=== PATIENT | female | born 1975 | race Caucasian/White ===

== ENCOUNTER 2023-10-11 07:40 | Outpatient (CLI) | payer OTHER, SELFPAY | END 2023-10-11 07:41 | disposition home or self-care (01) | LOC: NFLDREF 10-12 11:47 | PROVIDERS: PCP Family Medicine; Referring Provider Family Medicine; Visit Provider Family Medicine | DX: Z00.00 Encounter for general adult medical examination without abnormal findings (principal); Z13.6 Encounter for screening for cardiovascular disorders; Z13.9 Encounter for screening, unspecified | CPT/HCPCS: 80053; 80061 ==

== ENCOUNTER 2023-12-10 13:41 | Emergency (ER) | payer OTHER, SELFPAY ==
[2023-12-10 13:47] VITALS: BP 94/64; PULSE 75; RESP 14; TEMP 36.8; O2SAT 100; BMI 18.2
[2023-12-10 14:02] LABS: Appearance Urine Slightly Cloudy (Clear); Bilirubin Urine Negative (Negative); Blood Urine Negative (Negative); Color Urine Yellow (Yellow); Glucose Urine Negative (Negative); Ketones Urine Negative (Negative); Leukocyte Esterase Urine Negative (Negative); Nitrite Urine Negative (Negative); Protein Urine Negative (Negative); Specific Gravity Urine >= 1.030 (1.000-1.030); Urobilinogen Urine 0.2 (0.2-1.0); pH Urine 5.5 (5.0-8.5)
--- NOTE | 2023-12-10 14:09 | CRLHL7_ITS ---
For Patients: As a result of the Century Cures Act, medical imaging exams and procedure reports are released immediately into your electronic medical record. You may view this report before your referring provider. If you have questions, please contact your health care provider. INDICATION: Left lower quadrant pain. TECHNIQUE: CT abdomen and pelvis acquired with 100 cc Omnipaque 350 IV contrast. COMPARISON: None. FINDINGS: Limited evaluation secondary to paucity of mesenteric fat. Lower chest: Scattered atelectasis. Liver: He scattered hepatic hypodensities. Normal in size and attenuation. No suspicious masses. Gallbladder and bile ducts: Unremarkable. No stones or inflammation. No biliary dilatation. Pancreas: Unremarkable. No mass or inflammation. Spleen: Unremarkable. Normal in size. No masses. Adrenal glands: Unremarkable. No nodules. Kidneys: Few right-sided renal sinus cysts. No suspicious masses, stones, or hydronephrosis. GI tract: Moderate colonic stool burden. Normal in caliber. No sign of mass or inflammation. Appendix not definitely seen, however no right lower quadrant inflammatory stranding. Vasculature: Abdominal aorta is normal in caliber. Mesenteric arteries are patent. Lymph nodes: No lymphadenopathy. Peritoneum/Abdominal Wall: Unremarkable. No sign of mass or infiltration. No free air or significant free fluid. Pelvis: Hysterectomy. Bones: Unremarkable for age. IMPRESSION: No acute intra-abdominal/pelvic abnormality. Moderate colonic stool burden. Please note that all CT scans at this facility use dose modulation, iterative reconstruction, and/or weight-based dosing when appropriate to reduce radiation dose to as low as reasonably achievable. Dictated by Zaheer Carroll MD @ 12/10/2023 3:14:09 PM (Electronically Signed)
--- NOTE | 2023-12-10 14:11 | ED_ITS ---
HPI - Abdominal Pain General Chief Complaint: Abdominal Pain Stated Complaint: L side abdominal pain Time Seen by Provider: 12/10/23 13:43 History of Present Illness HPI narrative: This 48-year-old female comes in reporting left lower quadrant abdominal pain that began this morning. She states that the pain is reproducible with standing up. When she is in a sitting position her pain is almost completely gone. She rates the pain at 8/10 in severity. She states that the pain does radiate down toward her left knee. She does have some chronic low back pain but describes no recent injury or strenuous activity. She has not had any fever, nausea, vomiting, diarrhea, or upper respiratory symptoms. Related Data Previous Rx's Medication Instructions Recorded albuterol sulfate 2.5 mg/3 mL 2.5 mg (3 mL) inhalation .prn PRN 10/24/22 (0.083 %) solution for nebulization bronchospasm #75 mL ipratropium 0.5 mg-albuterol 3 mg 3 ml inhalation Q4H PRN wheezing 04/23/23 (2.5 mg base)/3 mL nebulization #90 mL soln albuterol sulfate 90 mcg/actuation 2 puff inhalation Q4-6H PRN 10/13/23 aerosol inhaler bronchospasm #8.5 grams sumatriptan succinate 50 mg tablet 50 mg PO .As Needed PRN migraine 10/13/23 headache #14 tabs peg 3350-electrolytes 236 240 ml PO ONCE #4,000 mL 11/21/23 gram-22.74 gram-6.74 gram-5.86 gram solution (Golytely) benzonatate 100 mg capsule 100 mg PO BID-TID PRN cough #30 11/27/23 caps cyclobenzaprine 10 mg tablet 10 mg PO TID #15 tabs 12/10/23 ketorolac 10 mg tablet 10 mg PO Q8H 5 days #15 tabs 12/10/23 Allergies Allergy/AdvReac Type Severity Reaction Status Date / Time penicillin V Allergy Intermediate Hives Verified 12/10/23 13:46 amoxicillin Allergy Unknown Hives/angeo Verified 12/10/23 13:46 adema Review of Systems Status of ROS Reports: 10 or more systems reviewed and unremarkable except as noted in History and below Narrative Constitutional: No fevers, no weight gain or loss. Eyes: No discharge. No vision changes. HENT: No congestion, no sore throat, no ear pain. Cardiovascular: No chest pain, no palpitations. Respiratory: No shortness of breath, no wheezes, no cough. Gastrointestinal: No vomiting, no diarrhea. Abdominal pain as described above. Genitourinary: No dysuria, no hematuria. Musculoskeletal: Normal range of motion. Skin: No rashes, no pruritis. Neurological: No dizziness, weakness, sensory change, speech change. Endo/Heme/Allergies: No bruising or bleeding. No polydipsia. Pysch: no suicidality, no anxiety, no insomnia. All other systems reviewed and are negative. [facility] Medical History (Updated 12/10/23 @ 15:37 by Tigre Ogden MD) SAMIA III (cervical intraepithelial neoplasia III) (2016) ?D06.9 - Carcinoma in situ of cervix, unspecified (ICD-10) Endometriosis ?N80.9 - Endometriosis, unspecified (ICD-10) Migraine with aura ?G43.109 - Migraine with aura, not intractable, without status migrainosus (ICD-10) History of abnormal cervical Papanicolaou smear (2010) ?Z87.42 - Personal history of other diseases of the female genital tract (ICD-10) Hemangioma of liver (2013) ?D18.03 - Hemangioma of intra-abdominal structures (ICD-10) Crampy pain associated with menses ?N94.6 - Dysmenorrhea, unspecified (ICD-10) Surgical History (Updated 10/13/23 @ 12:20 by Prerna Barnett MD) Status post laparoscopic hysterectomy (2020) ?Z90.710 - Acquired absence of both cervix and uterus (ICD-10) History of repair of anterior cruciate ligament of left knee (1989) ?Z98.890 - Other specified postprocedural states (ICD-10) History of nasal septoplasty (09/01/17) ?Z98.890 - Other specified postprocedural states (ICD-10) Family History Paternal Grandmother Breast cancer, Onset Age: 92 Father Suicide Social History (Updated 10/13/23 @ 11:49 by Veronica Sanon ~ [facility]) Narrative: , licensed physical therapy assistant daycare, 2 kids, 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 Non-smoker Rarely consumes alcohol Exercise 5 to 6 times a week by walking on treadmill 90 minute What is your current living situation?: I presently have a place to live Problems where you live: no known problems In the past 12 months, utilities in danger of being shut off: no In past 12 months, lack of transportation kept you from medical appts, meetings, work, or getting things needed for daily living: no In the past 12 mos, have been you worried that your food would run out before you had money to buy more?: never true In the past 12 mos, the food you bought just didn't last and you didn't have money to buy more?: never true Smoking Status: Never smoker How often do you have a drink containing alcohol: monthly or less AUDIT-C Alcohol total score: 1 Non-prescribed substance use: denies use How often does anyone, including family, friends and others, physically hurt you : never How often does anyone, including family, friends and others, insult or talk down to you: never How often does anyone, including family, friends and others, threaten you with harm: never How often does anyone, including family, friends and others, scream or curse at you: never Little interest or pleasure in doing things: not at all Feeling down, depressed, or hopeless: not at all Exam Narrative: Exam Narrative: Constitutional: Well-developed, well-nourished, no acute distress. HEENT: Normocephalic, atraumatic. Neck: Normal range of motion. Nontender. Supple. Heart: Regular. No murmurs. Normal rate. Intact distal pulses. Lungs: Clear to auscultation. No chest discomfort. No wheezes, rhonchi, or rales. Abdomen: Normal bowel sounds. Tenderness when palpating in the left lower quadrant. No rebound tenderness. No pain when percussing over the left flank. Genitalia: Deferred. Back: No midline tenderness. Normal range of motion. Extremities: Normal range of motion. No injury. Skin: Intact. No rash. Warm. No erythema or pallor. Neurologic: No altered sensation. No weakness. Alert and oriented. Psychiatric: No suicidality. No anxiety or depression. No insomnia. Nursing notes and vitals signs are reviewed. Const: Vital Signs, click to edit/add: Vital Signs - 24 hr 12/10/23 13:47 12/10/23 14:20 Temperature 98.3 F Pulse Rate 79 Pulse Rate [Pulse Oximeter] 75 Respiratory Rate 14 14 Blood Pressure 125/82 Blood Pressure [Ri ght Upper Arm] 94/64 Pulse Oximetry 100 98 Oxygen Delivery Me thod Room Air Course Vital Signs Vital signs: Initial Vital Signs Temperature 98.3 F 12/10/23 13:47 Temperature Source Temporal Artery Scan 12/10/23 13:47 Pulse Rate 75 12/10/23 13:47 Pulse Rhythm Regular 12/10/23 13:47 Respiratory Rate 14 12/10/23 13:47 Blood Pressure 94/64 12/10/23 13:47 Blood Pressure Mean 74 12/10/23 13:47 Blood Pressure Position Sitting 12/10/23 13:47 Pulse Oximetry 100 12/10/23 13:47 Oxygen Delivery Method Room Air 12/10/23 13:47 Vital Signs Temperature 98.3 F 12/10/23 13:47 Pulse Rate 75 12/10/23 13:47 Respiratory Rate 14 12/10/23 13:47 Blood Pressure 94/64 12/10/23 13:47 Pulse Oximetry 100 12/10/23 13:47 Oxygen Delivery Method Room Air 12/10/23 13:47 Temperature 98.3 F 12/10/23 13:47 Pulse Rate 79 12/10/23 14:20 Respiratory Rate 14 12/10/23 14:20 Blood Pressure 125/82 12/10/23 14:20 Pulse Oximetry 98 12/10/23 14:20 Oxygen Delivery Method Room Air 12/10/23 13:47 MDM - Abdominal Pain MDM Narrative Medical decision making narrative: This patient comes in reporting left lower quadrant abdominal pain and low back pain. This pain radiates down into her left leg. She has worsening pain when standing up and her pain is relieved when sitting. She does not describe any fever or other symptoms. There is no recent injury event or strenuous activity. She does have some chronic low back pain. Her pain was a bit reproducible by pressing in her lower left quadrant of her abdomen. I did order a CT scan with IV contrast and this returns with no acute intra-abdominal process. Additionally her lab results are all reassuring. Her white cell count is elevated at around 16.3 but the patient states that she was recently on prednisone to treat some asthma symptoms. This would account for the increased white cell count. She does not have any fever or other signs of infection. Her urinalysis is normal. Most likely this patient's pain is musculoskeletal and perhaps pressure on a nerve somewhere. The patient did received prescription for Toradol and Flexeril. She is encouraged to remain active and increase activity as tolerated. She is encouraged also to follow-up with our spine clinic if needed. Lab Data Labs: Lab Results 12/10/23 12/10/23 Range/Units 13:51 14:20 WBC 16.34 H (4.50-11.00) K/uL RBC 5.06 (4.00-5.20) m/uL Hgb 15.1 (12.0-16.0) gm/dL Hct 47.2 (33.0-51.0) % MCV 93 (80-100) fL MCH 30 (26-34) pg MCHC 32 (32-36) gm/dL RDW Coeff of Blue 13.1 (11.5-15.5) % Plt Count 341 (140-440) K/uL Neut % (Auto) 83.2 H (42.0-72.0) % Lymph % (Auto) 11.7 L (20-44) % Wilkin % (Auto) 3.6 (0.0-11.0) % Eos % (Auto) 0.6 (0.0-7.0) % Baso % (Auto) 0.2 (0.0-3.0) % Neut # (Auto) 13.60 H (1.7-7.0) K/uL Lymph # (Auto) 1.90 (0.90-2.90) K/uL Wilkin # (Auto) 0.60 (0.00-0.90) K/UL Eos # (Auto) 0.10 (0.00-0.50) K/uL Baso # (Auto) 0.00 (0.00-0.30) K/uL Abs Immat Gran (auto) 0.10 (0.00-0.30) K/uL Imm/Tot Granulo (auto) 0.7 % Sodium 139 (135-149) mmol/L Potassium 5.1 (3.6-5.1) mmol/L Chloride 106 (96-114) mmol/L Carbon Dioxide 27 (20-32) mmol/L Anion Gap 6 L (7-15) mEq/L BUN 16 (5-24) mg/dL Creatinine 0.6 (0.5-1.5) mg/dL Estimated Creat Clear 100.67 Estimated GFR 112 ml/min Glucose 99 (60-115) mg/dL Calcium 9.1 (8.4-10.6) mg/dL Urine Color Yellow (Yellow) Urine Appearance Slightly Cloudy A (Clear) Urine pH 5.5 (5.0-8.5) Ur Specific [place] >= 1.030 (1.000-1.030) Urine Protein Negative (Negative) Urine Glucose (UA) Negative (Negative) Urine Ketones Negative (Negative) Urine Blood Negative (Negative) Urine Nitrite Negative (Negative) Urine Bilirubin Negative (Negative) Urine Urobilinogen 0.2 (0.2-1.0) Ur Leukocyte Esterase Negative (Negative) Urine RBC 0-2 (0-2) Urine WBC 0-2 (0-5) Urine WBC Clumps None (None) Ur Squamous Epith Cells Many A (None-Few) Urine Bacteria Moderate A (None) Imaging Data CT scan - abdomen: Radiologist's impression: No acute intra-abdominal/pelvic abnormality. Moderate colonic stool burden. Discharge Plan Discharge Clinical Impression: Acute left lumbar radiculopathy Patient Disposition: Home, Self-Care Condition: Stable Additional Instructions: Take medication as prescribed. Activity as tolerated. Follow up with Spine Clinic if not improving or worsening. Call [phone] for appointment. Return to emergency department if needed. Prescriptions: New cyclobenzaprine 10 mg tablet 10 mg PO TID Qty: 15 0RF ketorolac 10 mg tablet 10 mg PO Q8H 5 Days Qty: 15 0RF No Action albuterol sulfate 2.5 mg /3 mL (0.083 %) solution for nebulization 2.5 mg inhalation .prn PRN (Reason: bronchospasm) Qty: 75 3RF ipratropium-albuterol 0.5 mg-3 mg(2.5 mg base)/3 mL solution for nebulization 3 ml inhalation Q4H PRN (Reason: wheezing) Qty: 90 0RF sumatriptan succinate 50 mg tablet 50 mg PO .As Needed PRN (Reason: migraine headache) Qty: 14 1RF albuterol sulfate 90 mcg/actuation HFA aerosol inhaler 2 puff inhalation Q4-6H PRN (Reason: bronchospasm) Qty: 8.5 3RF Rx Instructions: Use as needed for wheezing shortness of breath and coughing benzonatate 100 mg capsule 100 mg PO BID-TID PRN (Reason: cough) Qty: 30 1RF peg 3350-electrolytes [Golytely] 236-22.74-6.74 -5.86 gram recon soln 240 ml PO ONCE Qty: 4000 0RF Rx Instructions: until fecal effluent is clear Follow Up/Referrals: Prerna Barnett MD [Primary Care Provider] - Stand Alone Forms: [employer] Info Instructions
[2023-12-10 14:18] LABS: RBC Urine 0-2 (0-2); WBC Urine 0-2 (0-5)
[2023-12-10 14:19] LABS: Bacteria Urine Moderate; Squamous Epithelial Cell Urine Many (None-Few)
[2023-12-10 14:20] VITALS: BP 125/82; PULSE 79; RESP 14; O2SAT 98
[2023-12-10 14:33] LABS: Basophils Percent Auto 0.2 % (0.0-3.0); Eosinophils Percent Auto 0.6 % (0.0-7.0); Hematocrit 47.2 % (33.0-51.0); Hemoglobin* 15.1 gm/dL (12.0-16.0); Immature Granulocytes Pct Auto 0.7 %; Lymphocytes Percent Auto 11.7 % (20-44); Mean Corpuscular HGB Conc 32 gm/dL (32-36); Mean Corpuscular Hemoglobin 30 pg (26-34); Mean Corpuscular Volume 93 fL (80-100); Monocytes Percent Auto 3.6 % (0.0-11.0); Neutrophils Percent Auto 83.2 % (42.0-72.0); Platelet Count* 341 K/uL (140-440); RDW Coefficient of Variation % 13.1 % (11.5-15.5); Red Blood Count 5.06 m/uL (4.00-5.20); White Blood Count* 16.34 K/uL (4.50-11.00)
[2023-12-10 14:44] LABS: Slide Review Reflex No
[2023-12-10 14:46] LABS: Chloride* 106 mmol/L (96-114)
[2023-12-10 14:47] LABS: Potassium* 5.1 mmol/L (3.6-5.1); Sodium* 139 mmol/L (135-149)
[2023-12-10 14:50] LABS: Anion Gap 6 mEq/L (7-15); Blood Urea Nitrogen* 16 mg/dL (5-24); Calcium* 9.1 mg/dL (8.4-10.6); Carbon Dioxide* 27 mmol/L (20-32); Creatinine* 0.6 mg/dL (0.5-1.5); Est. Creatinine Clearance* 100.67; Estimated Glomerular Filt Rate 112 ml/min; Glucose* 99 mg/dL (60-115)
--- OUTSIDE RECORDS SUMMARY | 2023-12-10 14:50 | XMS_ITS | Clinical Summary ---
Author Name Unknown Organization [facility] Address [place], [place] [address] Care Team Providers Care Customer Supply Coordinator Name Role Phone Pcp, No Primary Care Provider Unavailabl e Allergies Active Allergy Reactions Criticality Noted Date Comments Amoxicillin Anaphylaxis High 10/21/2016 Penicillins Hives 01/25/2007 Medications Medication Sig Dispensed Refills Start Date End Date Status multivitamin (MVI) tablet Take 1 tablet by mouth once daily. 0 10/30/2015 Active Inhalational Spacing Device (E-Z SPACER)Indications:As thma exacerbation For home use. 1 Device 0 10/24/2016 Active NebulizerIndications: Asthma exacerbation Nebulizer, dis neb kit x 4, reuse neb kit x 1, mask x 1, filters x 1. Frequency of use: daily; Med: albuterol LARA: 12 months 1 Device 0 10/26/2016 Active Nebulizer AccessoriesIndication s:Asthma exacerbation 1 Kit 0 10/26/2016 Active SUMAtriptan (IMITREX) 25 mg tabletIndications:Simon jerod with aura and without status migrainosus, not intractable Take 1 tablet by mouth 2 times daily if needed for Migraine. Max dose: 200mg per 24 hrs. 20 tablet 12 07/12/2018 Active albuterol (PROVENTIL) 0.083 % neb solutionIndications:E xacerbation of asthma, unspecified asthma severity, unspecified whether persistent Inhale 3 mL via a nebulizer every 4 hours if needed. 3 box 1 07/12/2018 Active albuterol HFA (PROAIR HFA) 90 mcg/actuation inhalerIndications:Mi ld intermittent asthma without complication Inhale 2 Puffs by mouth every 4 hours if needed (cough). Include spacer 3 Inhaler 4 07/12/2018 Active albuterol-ipratropium (DUONEB) (2.5-0.5 mg) in 3 mL NEBULIZATION solutionIndications:E xacerbation of asthma, unspecified asthma severity, unspecified whether persistent Inhale 3 mL via a nebulizer 4 times daily if needed. 1 box 1 07/12/2018 Active azithromycin (ZITHROMAX) 250 mg tabletIndications:Mod erate persistent asthma without complication,Cough,Fe berhane, unspecified fever cause Take 500 mg (2 tabs) by mouth on day 1, then 250 mg (1 tab) daily for days 2-5. 6 tablet 0 08/06/2018 Active ADVAIR DISKUS 250-50 mcg/dose diskus inhalerIndications:Mo derate persistent asthma without complication INHALE 1 PUFF BY MOUTH TWICE A DAY 60 g 0 09/05/2018 Active Active Problems Problem Noted Date Diagnosed Date Moderate persistent asthma without complication 08/06/2018 Liver hemangioma 05/14/2014 Overview: 3 small benign hemangiomas - evaluated by MRI on 05/13/14 ASCUS of cervix with negative high risk HPV 03/20 Overview: 03/2011 ASCUS/HPV negative. 07/22/2014 NIL 07/12/2018 NIL/HPV negative Plan: Pap/HPV due 06/2021 Unspecified asthma(493.90) 01/25/2007 Overview: with URI Migraine, unspecified, witho ut mention of intractable migraine without mention of status migrainosus Overview: usually asymptomatic Immunizations Name Administration Dates Next Due Hepatitis A (Adult) 05/26/2016 Influenza A (H1N1), Inactivated 10/16/2009 Influenza A (H1N1), Inactiva jessica (Age >=3 Years) 10/16/2009 Influenza, IIV3 (Age >=3 years) 10/02/2008,09/04,10/14/2003 Td (Age >=7 Years) 05/08/2006 Tdap 01/14/2013 Varicella Vaccine 01/14/2013,05/20/2008 Family History Medical History Relation Name Comments Psychiatric illness Father Suicide 2008 Cancer Maternal Aunt skin cancer in her 40's Hyperlipidemia Maternal Grandfather heart related COD Hyperlipidemia Maternal Grandmother heart related COD Good Health Mother Heart Disease Paternal Grandfather [place] in 1993 or , also skin melanoma in 70's Good Health Sister Psychiatric illness Son 1 ADHD Psychiatric illness Son 2 ADHD Relation Name Status Comments Father Maternal Aunt Maternal Grandfather Maternal Grandmother Mother Alive Paternal Grandfather Sister Alive Son 1 Son 2 Social History Tobacco Use Types Packs/Day Years Used Date Smoking Tobacco: Never Smokeless Tobacco: Never Tobacco Cessation:Counseling Given: Yes Alcohol Use Standard Drinks/Week Comments Yes 0 (1 standard drink = 0.6 oz pur e alcohol) occasional Sex and Gender Information Value Date Recorded Sex Assigned at Not on file Gender Identity Not on file Sexual Orientation Not on file Obstetrics History Para Term AB IAB SAB Ectopic Multiple Livin g Live Births 4 2 2 2 2 Date Outcome GA Total Labor Labor//3rd Weight Sex Delivery Anes PTL Torri A1 A5 Name Cl in Term Term 11/26 40w 0d Vag Carly ng Zack w 09/29 38w 0d Vag Carly ng Larry Last Filed Vital Signs Vital Sign Reading Time Taken Comments Blood Pressure 98/60 08/06/2018 10:43 AM CDT Pulse 88 08/06/2018 10:43 AM CDT Temperature 36.7 ??C (98 ??F) 08/06/2018 10:43 AM CDT Respiratory Rate 14 07/12/2018 3:30 PM CDT Oxygen Saturation 91% 08/06/2018 10:43 AM CDT Inhaled Oxygen Concentration - - Weight 58.5 kg (129 lb) 08/06/2018 10:43 AM CDT Height 170.2 cm (5' 7) 07/12/2018 3:30 PM CDT Body Mass Index 20.2 07/12/2018 3:30 PM CDT Plan of Treatment Health Maintenance Due Date Last Done Comments COVID-19 vaccine series (#1) 04/11/1978 HIV for age 15-65 1992 Hepatitis C screening for age 18-79 1995 Depression screening for age 12+ 08/24/2018 08/24/2017, 03/10/2016 BMI (ht and wt on same day) for age 18+ 07/12/2019 07/12/2018, 01/10/2018, 11/23/2017, Additional history exists Pap test for age 21-65 07/12/2021 8, 07/12/2018, 07/22/2014, Additional history exists Colonoscopy through age 75 2022 Lipids for age 45-75 2022 10/30/2015, 01/19/2009, 01/19/2009 Mammogram for age 45-75 2022 Tetanus booster 01/14/2023 01/14/2013, 05/08/2006 Influenza for age 9-49 07/21/2023 9, 10/16/2009, 10/02/2008, Additional history exists Tdap Completed 01/14/2013 Pneumococcal series for age 6-64 Aged Out No longer eligible based on patient's age to complete this topic Care Teams Customer Supply Coordinator Relationship Specialty Start Date End Date Pcp, No . PCP - General 12/28/18
== END 2023-12-10 15:48 | disposition home or self-care (01) ==
PROVIDERS: Emergency Provider Emergency Medicine Emergency Medical Services; PCP Family Medicine
DX: M54.16 Radiculopathy, lumbar region (principal)
CPT/HCPCS: 36415; 74177; 80048; 81001; 85025; 87086; 96374; 99284; 99285; Q9967

== ENCOUNTER 2024-04-05 10:26 | Day surgery (SDC) | payer OTHER, SELFPAY ==
[2024-04-05] VITALS (11 sets, daily range): BP systolic 118–134; BP diastolic 70–99; PULSE 74–99; RESP 12–16; TEMP 36.5–37.2; O2SAT 96–98; BMI 18.0
--- OUTSIDE RECORDS SUMMARY | 2024-04-05 10:40 | XMS_ITS | Clinical Summary ---
Author Name Unknown Organization [employer] [facility] Address [place], [place] [address] Care Team Providers Care Loan Secretary Name Role Phone Pcp, No Primary Care Provider Unavailabl e Allergies Active Allergy Reactions Criticality Noted Date Comments Amoxicillin Anaphylaxis High 10/21/2016 Doxycycline Nausea And Vomiting 01/01/2024 Penicillins Hives 01/25/2007 Medications Medication Sig Dispensed Refills Start Date End Date Status multivitamin (MVI) tablet Take 1 tablet by mouth once daily. 0 10/30/2015 Active Inhalational Spacing Device (E-Z SPACER)Indications:As thma exacerbation For home use. 1 Device 10/24/2016 Active NebulizerIndications: Asthma exacerbation Nebulizer, dis neb kit x 4, reuse neb kit x 1, mask x 1, filters x 1. Frequency of use: daily; Med: albuterol LARA: 12 months 1 Device 10/26/2016 Active Nebulizer AccessoriesIndication s:Asthma exacerbation 1 Kit 10/26/2016 Active SUMAtriptan (IMITREX) 25 mg tabletIndications:Simon [...] Include spacer 3 Inhaler 4 07/12/2018 Active ADVAIR DISKUS 250-50 mcg/dose diskus inhalerIndications:Mo derate persistent asthma without complication INHALE 1 PUFF BY MOUTH TWICE A DAY 60 g 09/05/2018 Active albuterol-ipratropium (DUONEB) (2.5-0.5 mg) in 3 mL NEBULIZATION solutionIndications:E xacerbation of asthma, unspecified asthma severity, unspecified whether persistent Inhale 3 mL via a nebulizer 4 times daily if needed for Shortness Of Breath or Wheezing. 30 mL 01/01/2024 Active Active Problems Problem Noted Date Diagnosed [...] Relation Name Comments Psychiatric illness Father Suicide 2007 Cancer Maternal Aunt skin cancer in her 40's Hyperlipidemia Maternal Grandfather heart related COD Hyperlipidemia Maternal Grandmother heart related COD Good Health Mother Heart Disease Paternal Grandfather AR in 1993 or , also skin melanoma [...] 2 2 Date Outcome GA Total Labor Labor/2nd/3rd Weight Sex Delivery Anes PTL Torri A1 A5 Name Cl in Term Term 11/26 40w 0d Vag Carly ng Zack w 09/29 38w 0d Vag Carly ng Larry Last Filed Vital Signs Vital Sign Reading Time Taken Comments Blood Pressure 133/73 01/01/2024 1:45 PM SEMICONDUCTORS WAFER BREAKER Pulse 82 01/01/2024 1:45 PM SEMICONDUCTORS WAFER BREAKER Temperature 37.2 ??C (98.9 ??F) 01/01/2024 1:45 PM CS T Respiratory Rate 16 01/01/2024 1:45 PM SEMICONDUCTORS WAFER BREAKER Oxygen Saturation 95% 01/01/2024 1:45 PM SEMICONDUCTORS WAFER BREAKER Inhaled Oxygen Concentration - - Weight 54.4 kg (120 lb) 01/01/2024 1:45 PM SEMICONDUCTORS WAFER BREAKER Height 172.7 cm (5' 8) 01/01/2024 1:45 PM SEMICONDUCTORS WAFER BREAKER Body Mass Index 18.25 01/01/2024 1:45 PM SEMICONDUCTORS WAFER BREAKER Plan of Treatment Health Maintenance Due Date Last Done Comments HIV for age 15-65 1992 Hepatitis C screening for age 18-79 1995 Depression screening for age 12+ 08/24/2018 08/24/2017, 03/10/2016 BMI (ht and wt on same day) for age 18+ 07/12/2019 07/12/2018, 01/10/2018, 11/23/2017, Additional history exists Colonoscopy through age 75 2022 Lipids for age 45-75 2022 10/30/2015, 01/19/2009, 01/19/2009 Mammogram for age 45-75 2022 Tetanus booster 01/14/2023 01/14/2013, 05/08/2006 Pap test for age 21-65 01/27/2024 , 01/26/2021, 07/12/2018, Additional history exists Influenza for age 9-49 07/21/2024 9, 10/16/2009, 10/02/2008, Additional history exists Tdap Completed 01/14/2013 COVID-19 vaccine series Completed 10/13/2023, 12/19 Pneumococcal series for age 6-64 Aged Out No longer eligible based on patient's age to complete this topic Procedures Procedure Name Priority Date/Time Associated Diagnosis Comments PROFESSOR OF INDUSTRIAL TECHNOLOGY THIN PREP PAP SCREEN IMAGED Routine 01/26/2021 2:00 PM SEMICONDUCTORS WAFER BREAKER LIPID PANEL W REFLEX MEASURED LDL Routine 10/30/2015 12:18 PM SEMICONDUCTORS WAFER BREAKER Screening for lipoid disorders from Last 3 Months or Most Recently Relevant to Health Maintenance Results * PROFESSOR OF INDUSTRIAL TECHNOLOGY THIN PREP PAP SCREEN IMAGED (01/26/2021 2:00 PM SEMICONDUCTORS WAFER BREAKER) Case Report Gynecologic Cytology Report ? Case: [id number] ? Authorizing Provider: ??Prerna Barnett MD ??Collected: ? 01/26/2021 1400 ? Ordering Location: ? [facility] ?Received: ?01/28/2021 1509 ? First Screen: ?Carlos, Barry ? Specimen: ?PROFESSOR OF INDUSTRIAL TECHNOLOGY ThinPrep Vial Screening, Cervical/Vaginal ? 02/05/2021 2:41 PM CDT [facility] INTERPRETATION/ RESULT NEGATIVE FOR INTRAEPITHELIAL LESION OR MALIGNANCY (NIL) (none) 02/05/2021 2:41 PM CDT [facility] IMEN ADEQUACY Satisfactory for evaluation Endocervical component present 02/05/2021 2:41 PM CDT [facility] HPV REQUEST HPV if ASCUS 02/05/2021 2:41 PM CDT [facility] Date of LMP 02/05/2021 2:41 PM T [facility] Comment:Unknown Last Pap Date 02/05/2021 2:41 PM CDT [facility] Comment:Unknown Last Pap Result NIL 2:41 PM CDT [facility] Additional Information 02/05/2021 2:41 PM CDT [facility] Comment: Interpreted at [facility], Central Laboratory - [address] [facility] [address], [place] [address] Automated Review Successful 02/05/2021 2:41 PM T [facility] Comment:Specimen processed s uccessfully by automated top trimmer device, ThinPrep Imaging System, [employer] Note The pap test is a screening technique, not a diagnostic procedure. It is used primarily to screen for squamous cancers and precursor lesions. Published studies have shown that it is subject to both false negative and false positive results. The pap test should not be used as the sole means to diagnose or exclude pre-malignant and malignant lesions. 02/05/2021 2:41 PM CDT [facility] Other (Cervical/Vagina l) 01/26/2021 2:00 PM SEMICONDUCTORS WAFER BREAKER 01/28/2021 3:09 PM SEMICONDUCTORS WAFER BREAKER Prerna Barnett MD PATHOLOGY/CYTOLO GY [facility] [address] [place] [address], * LIPID PANEL W REFLEX MEASURED LDL (10/30/2015 12:18 PM SEMICONDUCTORS WAFER BREAKER) CHOLESTEROL,TOTAL 180 100 - 199 mg/dL 10/30/2015 1:09 PM SEMICONDUCTORS WAFER BREAKER [facility] TRIGLYCERIDES 42 <150 mg/dL 10/30/2015 1:09 PM SEMICONDUCTORS WAFER BREAKER [facility] HDL CHOLESTEROL 79 >40 mg/dL 10/30/2015 1:09 PM SEMICONDUCTORS WAFER BREAKER [facility] NON-HDL CHOLESTEROL 101 <145 mg/dl 10/30/2015 1:09 PM SEMICONDUCTORS WAFER BREAKER [facility] CHOL/HDL RATIO 2.28 <4.50 10/30/2015 1:09 PM SEMICONDUCTORS WAFER BREAKER [facility] LDL CHOLESTEROL 93 <=130 mg/dL 10/30/2015 1:09 PM SEMICONDUCTORS WAFER BREAKER [facility] PATIENT STATUS FASTING 10/30/2015 1:09 PM SEMICONDUCTORS WAFER BREAKER [facility] Blood specimen (specimen) BLOOD SPECIMEN / Unknown Venipuncture / Unknown 10/30/2015 12:18 PM SEMICONDUCTORS WAFER BREAKER 10/30/2015 12:18 PM [employer]IC[employer]UCTORS WAFER BREAKER Violet Perez MD CHEMISTRY [facility] [address] [place] [address], from Last 3 Months or Most Recently Relevant to Health Maintenance Care Teams Loan Secretary Relationship Specialty Start Date End Date Pcp, No . PCP - General 12/28/18
--- OUTSIDE RECORDS SUMMARY | 2024-04-05 10:40 | XMS_ITS | Referral Summary ---
Author Name Unknown Organization [employer] Address [address] [facility] [place] [address] Care Team Providers Care Napper Fixer Name Role Phone Marian, Margo Collins Primary Care Provider Encounters Date Type Department Care Team Description 01/25/2024 Travel 01/25/2024 6:14 PM WASTE DISPOSAL ATTENDANT - 01/25/2024 8:47 PM WASTE DISPOSAL ATTENDANT Emergency [facility] Emergency Dept [address] [place] [id number] Brooks Somers MD Exacerbation of asthma, unspecified asthma severity, unspecified whether persistent (Primary Dx); Moderate persistent asthma without complication; Acute cough Discharge Disposition: Home or Self Care from Last 3 Months Medications Medication Sig Dispensed Refills Start Date End Date Status predniSONE (DELTASONE) 20 MG tablet Take 40 mg by mouth daily Active azithromycin (ZITHROMAX) 500 MG tablet Take 500 mg by mouth daily Active Active Problems Problem Noted Date Diagnosed Date Migraine headache 01/25/2024 Overview: usually asymptomatic Moderate persistent asthma without complication 08/06/2018 Liver hemangioma 05/14/2014 Overview: 3 small benign hemangiomas - evaluated by MRI on 05/13/14 ASCUS of cervix with negative high risk HPV 03/20 Overview: 03/2011 ASCUS/HPV negative. 07/22/2014 NIL 07/12/2018 NIL/HPV negative Plan: Pap/HPV due 06/2021 Asthma 01/25/2007 Overview: with URI Social History Tobacco Use Types Packs/Day Years Used Date Smoking Tobacco: Never Assessed Adolescent Education Answer Date Record ed Getting School Help Needed Not on file 01/24 Sex and Gender Information Value Date Recorded Sex Assigned at Not on file Gender Identity Not on file Sexual Orientation Not on file Last Filed Vital Signs Vital Sign Reading Time Taken Comments Blood Pressure 116/76 01/25/2024 8:30 PM WASTE DISPOSAL ATTENDANT Pulse 75 01/25/2024 8:30 PM WASTE DISPOSAL ATTENDANT Temperature 36.9 ??C (98.4 ??F) 01/25/2024 6:11 PM CS T Respiratory Rate 26 01/25/2024 6:11 PM WASTE DISPOSAL ATTENDANT Oxygen Saturation 93% 01/25/2024 8:30 PM WASTE DISPOSAL ATTENDANT Inhaled Oxygen Concentration - - Weight 53.1 kg (117 lb) 01/25/2024 6:22 PM WASTE DISPOSAL ATTENDANT Height 172.7 cm (5' 8) 01/25/2024 6:22 PM WASTE DISPOSAL ATTENDANT Body Mass Index 17.79 01/25/2024 6:22 PM WASTE DISPOSAL ATTENDANT Plan of Treatment Not on file Procedures Procedure Name Priority Date/Time Associated Diagnosis Comments XR CHEST 2 VIEWS STAT 01/25/2024 6:59 PM WASTE DISPOSAL ATTENDANT EKG 12-LEAD, TRACING ONLY STAT 01/25/2024 6:33 PM WASTE DISPOSAL ATTENDANT CBC WITH PLATELETS & DIFFERENTIAL STAT 01/25/2024 6:29 PM WASTE DISPOSAL ATTENDANT EXTRA HEPARINIZED SYRINGE STAT 01/25/2024 6:29 PM WASTE DISPOSAL ATTENDANT EXTRA GREEN TOP (LITHIUM HEPARIN) TUBE STAT 01/25/2024 6:29 PM WASTE DISPOSAL ATTENDANT EXTRA RED TOP TUBE STAT 01/25/2024 6: 29 PM WASTE DISPOSAL ATTENDANT EXTRA BLUE TOP TUBE STAT 01/25/2024 6 :29 PM WASTE DISPOSAL ATTENDANT EXTRA BLOOD CULTURE BOTTLE STAT 01/25/2024 6:29 PM WASTE DISPOSAL ATTENDANT CBC WITH PLATELETS AND DIFFERENTIAL STAT 01/25/2024 6:29 PM WASTE DISPOSAL ATTENDANT EXTRA TUBE STAT 01/25/2024 6:29 PM WASTE DISPOSAL ATTENDANT BASIC METABOLIC PANEL STAT 01/25/2024 6:29 PM WASTE DISPOSAL ATTENDANT EKG 12-LEAD, TRACING ONLY STAT 01/25/2024 6:18 PM WASTE DISPOSAL ATTENDANT from Last 3 Months Results * XR Chest 2 Views (01/25/2024 6:59 PM WASTE DISPOSAL ATTENDANT) Anatomical Region Laterality Modality Chest Digital Radiogra phy 01/25/2024 6:59 PM WASTE DISPOSAL ATTENDANT Impressions 01/26/2024 11:20 AM WASTE DISPOSAL ATTENDANT IMPRESSION: Hyperexpanded lungs, suggesting underlying emphysema. No focal airspace opacity. Bilateral pleural thickening versus trace effusions. No pneumothorax. Cardiac silhouette and mediastinal contours are normal. Narrative 01/26/2024 11:20 AM WASTE DISPOSAL ATTENDANT EXAM: XR CHEST 2 VIEWS LOCATION: [facility] DATE: 01/25/2024 INDICATION: Shortness of breath COMPARISON: 01/01/2024 Procedure Note Saturnino Adams MD - 01/26/2024 EXAM: XR CHEST 2 VIEWS LOCATION: [facility] DATE: 01/25/2024 INDICATION: Shortness of breath COMPARISON: 01/01/2024 IMPRESSION: Hyperexpanded lungs, suggesting underlying emphysema. No focalairspace opacity. Bilateral pleural thickening versus trace effusions. Nopneumothorax. Cardiac silhouette and mediastinal contours are normal. Brooks Somers MD IMG DIAGNOSTIC IMAGI NG ORDERABLES * EKG 12 lead (01/25/2024 6:33 PM WASTE DISPOSAL ATTENDANT) Only the most recent of2 resultswithin the time period is included. Systolic Blood Pressure mmHg RADIOLOGY RESULTS Diastolic Blood Pressure mmHg RADIOLOGY RESULTS Ventricular Rate 70 BPM RAD IOLOGY RESULTS Atrial Rate 70 BPM RADIOLOG Y RESULTS VT Interval 152 ms RADIOLOG Y RESULTS QRS Duration 84 ms RADIOLO GY RESULTS QT 416 ms RADIOLOGY RESULTS QTc 449 ms RADIOLOGY RESULTS P Stevinson 81 degrees RADIOLOGY RESULTS R AXIS 76 degrees RADIOLOGY RESULTS T Stevinson 61 degrees RADIOLOGY RESULTS Interpretation ECG Sinus rhythm with sinus arrhythmia Normal ECG When compared with ECG of 25-JAN-2024 18:18, (unconfirmed) No significant change was found RADIOLOGY RESULTS 01/25/2024 6:33 PM WASTE DISPOSAL ATTENDANT 01/25/2024 7:35 PM WASTE DISPOSAL ATTENDANT Brooks Somers MD ECG ORDERABLES Performing Organization Address [facility]/ZIP Co de Phone Number RADIOLOGY RESULTS * Extra Heparinized Syringe (01/25/2024 6:29 PM WASTE DISPOSAL ATTENDANT) Hold Specimen [facility] 01/25/2024 7:47 PM WASTE DISPOSAL ATTENDANT [facility] Blood, venous BLOOD SPECIMEN / Unknown Venipuncture / Unknown 01/25/2024 6:29 PM WASTE DISPOSAL ATTENDANT 01/25/2024 6:38 PM WASTE DISPOSAL ATTENDANT Brooks Somers MD LAB - BLOOD ORDERABL ES Performing Organization Address [facility] Co de Phone Number [facility] [address] Lab (1st floor, no room number) [place] [phone], [facility] [phone] * Extra Blood Culture Bottle (01/25/2024 6:29 PM WASTE DISPOSAL ATTENDANT) Hold Specimen [facility] 01/25/2024 7:47 PM WASTE DISPOSAL ATTENDANT [facility] Blood STRUCTURE OF RIGHT UPPER LIMB / Unknown Venipuncture / Unknown 01/25/2024 6:29 PM WASTE DISPOSAL ATTENDANT 01/25/2024 6:39 PM WASTE DISPOSAL ATTENDANT Brooks Somers MD LAB - BLOOD ORDERABL ES Performing Organization Address City/[facility]/ZIP Co de Phone Number [facility] [address] Lab (1st floor, no room number) [place] [address], [facility] [phone] * Extra Green Top (Olin Heparin) Tube (01/25/2024 6:29 PM WASTE DISPOSAL ATTENDANT) Hold Specimen [facility] 01/25/2024 7:47 PM WASTE DISPOSAL ATTENDANT [facility] Blood BLOOD SPECIMEN / Unknown Venipuncture / Unknown 01/25/2024 6:29 PM WASTE DISPOSAL ATTENDANT 01/25/2024 6:38 PM WASTE DISPOSAL ATTENDANT Brooks Somers MD LAB - BLOOD ORDERABL ES [facility] Lab [address] Lab (1st floor, no room number) [place] [address], [facility] [phone] * Extra Red Top Tube (01/25/2024 6:29 PM WASTE DISPOSAL ATTENDANT) Hold Specimen [facility] 01/25/2024 7:47 PM WASTE DISPOSAL ATTENDANT [facility] Blood BLOOD SPECIMEN / Unknown Venipuncture / Unknown 01/25/2024 6:29 PM WASTE DISPOSAL ATTENDANT 01/25/2024 6:38 PM WASTE DISPOSAL ATTENDANT Brooks Somers MD LAB - BLOOD ORDERABL ES Performing Organization Address City/[facility]/ZIP Co de Phone Number [facility] [address] Lab (1st floor, no room number) [place] [address], [place] [phone] * Extra Blue Top Tube (01/25/2024 6:29 PM WASTE DISPOSAL ATTENDANT) Hold Specimen [facility] 01/25/2024 7:47 PM WASTE DISPOSAL ATTENDANT [facility] Blood BLOOD SPECIMEN / Unknown Venipuncture / Unknown 01/25/2024 6:29 PM WASTE DISPOSAL ATTENDANT 01/25/2024 6:38 PM WASTE DISPOSAL ATTENDANT Brooks Somers MD LAB - BLOOD ORDERABL ES [facility] [address] Lab (1st floor, no room number) [place] [address], [place] [phone] * (ABNORMAL) CBC with platelets and differential (01/25/2024 6:29 PM WASTE DISPOSAL ATTENDANT) [facility] WBC Count 10.8 4.0 - 11.0 10e3/uL 01/25/2024 6:43 PM WASTE DISPOSAL ATTENDANT [facility] RBC Count 4.92 3.80 - 5.20 10e6/uL 01/25/2024 6:43 PM WASTE DISPOSAL ATTENDANT [facility] Hemoglobin 14.8 11.7 - 15.7 g/dL 01/25/2024 6:43 PM WASTE DISPOSAL ATTENDANT [facility] Hematocrit 45.5 35.0 - 47.0 % 01/25/2024 6:43 PM WASTE DISPOSAL ATTENDANT [facility] MCV 93 78 - 100 fL 01/25/2024 6:43 PM WASTE DISPOSAL ATTENDANT [facility] MCH 30.1 26.5 - 33.0 pg 01/25/2024 6:43 PM WASTE DISPOSAL ATTENDANT [facility] MCHC 32.5 31.5 - 36.5 g/dL 01/25/2024 6:43 PM WASTE DISPOSAL ATTENDANT [facility] RDW 13.2 10.0 - 15.0 % 01/25/2024 6:43 PM WASTE DISPOSAL ATTENDANT [facility] Platelet Count 342 150 - 450 10e3/uL 01/25/2024 6:43 PM WASTE DISPOSAL ATTENDANT [facility] % Neutrophils 61 % 01/25/2024 6:43 PM WASTE DISPOSAL ATTENDANT [facility] % Lymphocytes 22 % 01/25/2024 6:43 PM WASTE DISPOSAL ATTENDANT [facility] % Monocytes 5 % 01/25/2024 6:43 PM WASTE DISPOSAL ATTENDANT [facility] % Eosinophils 11 % 01/25/2024 6:43 PM WASTE DISPOSAL ATTENDANT [facility] % Basophils 1 % 01/25/2024 6:43 PM WASTE DISPOSAL ATTENDANT [facility] % Immature Granulocytes 0 % 01/25/2024 6:43 PM WASTE DISPOSAL ATTENDANT [facility] NRBCs per 100 WBC 0 <1 /100 024 6:43 PM WASTE DISPOSAL ATTENDANT [facility] Absolute Neutrophils 6.5 1.6 - 8.3 10e3/uL 01/25/2024 6:43 PM WASTE DISPOSAL ATTENDANT [facility] Absolute Lymphocytes 2.4 0.8 - 5.3 10e3/uL 01/25/2024 6:43 PM WASTE DISPOSAL ATTENDANT [facility] Absolute Monocytes 0.6 0.0 - 1.3 10e3/uL 01/25/2024 6:43 PM WASTE DISPOSAL ATTENDANT [facility] Absolute Eosinophils 1.2(H) 0.0 - 0.7 10e3/uL 01/25/2024 6:43 PM WASTE DISPOSAL ATTENDANT LABORATORY Absolute Basophils 0.1 0.0 - 0.2 10e3/uL 01/25/2024 6:43 PM WASTE DISPOSAL ATTENDANT LABORATORY Absolute Immature Granulocytes 0.0 <=0.4 10e3/uL 01/25/2024 6:43 PM WASTE DISPOSAL ATTENDANT [facility] Absolute NRBCs 0.0 10e3/uL 01/25/2024 6:43 PM WASTE DISPOSAL ATTENDANT LABORATORY Blood BLOOD SPECIMEN / Unknown Venipuncture / Unknown 01/25/2024 6:29 PM WASTE DISPOSAL ATTENDANT 01/25/2024 6:38 PM WASTE DISPOSAL ATTENDANT Brooks Somers MD LAB - BLOOD ORDERABL ES LABORATORY [facility] Lab [address] [facility] Lab (1st floor, no room number) [place] [address], [facility] [phone] * Basic metabolic panel (01/25/2024 6:29 PM WASTE DISPOSAL ATTENDANT) Pathologist [facility] Sodium 139 135 - 145 mmol/L 01/25/2024 7:01 PM [facility] Comment:Reference intervals for this test were updated on 08/15/2023 to more accurately reflect our healthy population. There may be differences in the flagging of prior results with similar values performed with this method. Interpretation of those prior results can be made in the context of the updated reference intervals. Potassium 4.4 3.4 - 5.3 mmol/L 01/25/2024 7:01 PM [facility] Chloride 103 98 - 107 mmol/L 01/25/2024 7:01 PM [facility] Carbon Dioxide (CO2) 23 22 - 29 mmol/L 01/25/2024 7:01 PM [facility] Anion Gap 13 7 - 15 mmol/L 01/25/2024 7:01 PM [facility] Urea Nitrogen 15.8 6.0 - 20.0 mg/dL 01/25/2024 7:01 PM [facility] Creatinine 0.82 0.51 - 0.95 mg/dL 01/25/2024 7:01 PM [facility] GFR Estimate 89 >60 mL/min/1. 73m2 01/25/2024 7:01 PM WASTE DISPOSAL ATTENDANT [facility] Calcium 9.2 8.6 - 10.0 mg/dL 01/25/2024 7:01 PM WASTE DISPOSAL ATTENDANT [facility] Glucose 94 70 - 99 mg/dL 01/25/2024 7:01 PM WASTE DISPOSAL ATTENDANT [facility] Blood BLOOD SPECIMEN / Unknown Venipuncture / Unknown 01/25/2024 6:29 PM WASTE DISPOSAL ATTENDANT 01/25/2024 6:38 PM WASTE DISPOSAL ATTENDANT Brooks Somers MD LAB - BLOOD ORDERABL ES [facility] [address] Lab (1st floor, no room number) [place] [address], [facility] [phone] from Last 3 Months Care Teams Napper Fixer Relationship Specialty Start Date End Date [facility], [address] [address] PCP - General 01/25/24
--- OUTSIDE RECORDS SUMMARY | 2024-04-05 10:40 | XMS_ITS | Encounter Summary ---
Author Name Unknown Organization [facility] Address [address] [place] [address] Care Team Providers Care Educational Therapist Name Role Phone Marian, Margo Ellington Primary Care Provider Reason for Visit * Reason Comments Shortness of Breath Encounter Details Date Type Department Care Team (Late st Contact Info) Description 01/25/2024 6:14 PM MARKET RESEARCH WORKER - 01/25/2024 8:47 PM MARKET RESEARCH WORKER Emergency [facility] Emergency Dept [address] [place] [address] [phone] Brooks Somers MD [facility] [address] [facility] [address] [id number] Exacerbation of asthma, unspecified asthma severity, unspecified whether persistent (Primary Dx); Moderate persistent asthma without complication; Acute cough Discharge Disposition: Home or Self Care Social History Tobacco Use Types Packs/Day Years Used Date Smoking Tobacco: Never Assessed Adolescent Education Answer Date Record ed Getting School Help Needed Not on file 01/24 Sex and Gender Information Value Date Recorded Sex Assigned at Not on file Gender Identity Not on file Sexual Orientation Not on file documented as of this encounter Last Filed Vital Signs Vital Sign Reading Time Taken Comments Blood Pressure 116/76 01/25/2024 8:30 PM MARKET RESEARCH WORKER Pulse 75 01/25/2024 8:30 PM MARKET RESEARCH WORKER Temperature 36.9 ??C (98.4 ??F) 01/25/2024 6:11 PM CS T Respiratory Rate 26 01/25/2024 6:11 PM MARKET RESEARCH WORKER Oxygen Saturation 93% 01/25/2024 8:30 PM MARKET RESEARCH WORKER Inhaled Oxygen Concentration - - Weight 53.1 kg (117 lb) 01/25/2024 6:22 PM MARKET RESEARCH WORKER Height 172.7 cm (5' 8) 01/25/2024 6:22 PM MARKET RESEARCH WORKER Body Mass Index 17.79 01/25/2024 6:22 PM MARKET RESEARCH WORKER documented in this encounter Discharge Instructions * Discharge Instructions* Brooks Somers MD - 01/25/2024 8:19 PM MARKET RESEARCH WORKER Thank you for allowing us to evaluate you today. Follow up with primary career advisor in 1-2 weeks for reevaluation.. Use the steroid, inhalers, nebs and Z-Yosi as already prescribed Use the codeine cough syrup for severe nighttime cough Please read the guidance provided with your discharge instructions. Immediately return to the emergency department with any concerns. ET RESEARCH WORKER * Attachments The following attachments cannot be sent through Care Everywhere. * Asthma: General Info (Setswana) documented in this encounter Medications at Time of Discharge Medication Sig Dispensed Refills Start Date End Date azithromycin (ZITHROMAX) 500 MG tablet Take 500 mg by mouth daily predniSONE (DELTASONE) 20 MG tablet Take 40 mg by mouth daily guaiFENesin-codeine (ROBITUSSIN AC) 100-10 MG/5ML solution Take 5-10 mLs by mouth every 4 hours as needed for cough 118 mL 01/25/2024 01/30/2024 documented as of this encounter ED Notes * Catie Bunch RN - 01/25/2024 6:12 PM CST Presents to triage with c/o SOB that has been ongoing for a few weeks but has gotten much worse over the past day. Patient was seen today at and given neb treatments, steroids and abx. Last neb was at 1430 but did not relieve any symptoms. Audibile wheezing in triage. ET RESEARCH WORKER * Brooks Somers MD - 01/25/2024 5:59 PM CST History Chief Complaint: Shortness of Breath HPI: Ifeoma Garcia is a very pleasant 48 year old female with asthma presenting with shortness of breath. She has had ongoing issues with shortness of breath and cough over the last few weeks. Symptoms have gone up which was over the last day. She was evaluated in urgent care and was given an albuterol nebulizer, steroids and prescribed a course of prednisone and azithromycin. No fever or chills. She has chest pain but only when coughing. She has been struggling to sleep due to persistent cough. Independent Historian: None. Only the patient provided history. Review of External Notes: I personally reviewed notes from the patient's urgent care visit dated 01/01/2024 . This provided mewith information regarding patient's recent presentation that urgent care for sinus infection . I personally reviewed the patient's chart, including available medication list and available past medical history, past surgical history, family history, and social history. Physical Exam Patient Vitals for the past 24 hrs: BP Temp Temp src Pulse Resp SpO2 Height Weight 01/25/242029 116/76 -- -- 75 -- 93 % -- -- 01/25/24 1822 -- -- -- -- -- -- 1.727 m (5' 8) 53.1 kg (117 lb) 01/25/24 1811 (!) 138/102 98.4 ??F (36.9 ??C) Temporal 90 26 94 % -- -- Physical Exam Vitals and nursing note reviewed. Constitutional: Appearance: She is well-developed. She is ill-appearing. Cardiovascular: Rate and Rhythm: Normal rate and regular rhythm. Pulmonary: Effort: Tachypnea present. Breath sounds: Wheezing present. No decreased breath sounds, rhonchi or rales. Musculoskeletal: Right lower leg: No edema. Left lower leg: No edema. Skin: General: Skin is warm and dry. Neurological: Mental Status: She is alert. Emergency Department Course ECG: ECG results from 01/25/24 EKG 12-lead, tracing only Value Systolic Blood Pressure Diastolic Blood Pressure Ventricular Rate 73 Atrial Rate 73 OK Interval 156 QRS Duration 84 QT 410 QTc 451 P Iva 83 R AXIS 77 T Iva 65 Interpretation ECG Sinus rhythm Normal ECG No previous ECGs available EKG 12 lead Value Systolic Blood Pressure Diastolic Blood Pressure Ventricular Rate 70 Atrial Rate 70 OK Interval 152 QRS Duration 84 QT 416 QTc 449 P Iva 81 R AXIS 76 T Iva 61 Interpretation ECG Sinus rhythm with sinus arrhythmia Normal ECG When compared with ECG of 25-JAN-2024 18:18, (unconfirmed) No significant change was found My interpretation Imaging: Laboratory: XR Chest 2 Views (Results Pending) Report(s) per radiology. Labs Ordered and Resulted from Time of ED Arrival to Time of ED Departure CBC WITH PLATELETS AND DIFFERENTIAL - Abnormal Result Value WBC Count 10.8 RBC Count 4.92 Hemoglobin 14.8 Hematocrit 45.5 MCV 93 MCH 30.1 MCHC 32.5 RDW 13.2 Platelet Count 342 % Neutrophils 61 % Lymphocytes 22 % Monocytes 5 % Eosinophils 11 % Basophils 1 % Immature Granulocytes 0 NRBCs per 100 WBC 0 Absolute Neutrophils 6.5 Absolute Lymphocytes 2.4 Absolute Monocytes 0.6 Absolute Eosinophils 1.2 (*) Absolute Basophils 0.1 Absolute Immature Granulocytes 0.0 Absolute NRBCs 0.0 BASIC METABOLIC PANEL - Normal Sodium 139 Potassium 4.4 Chloride 103 Carbon Dioxide (CO2) 23 Anion Gap 13 Urea Nitrogen 15.8 Creatinine 0.82 GFR Estimate 89 Calcium 9.2 Glucose 94 Procedures None performed Interventions & Assessments: Interventions: Medications ipratropium - albuterol 0.5 mg/2.5 mg/3 mL (DUONEB) neb solution 3 mL (3 mLs Nebulization $Given 01/25/241933) sodium chloride 0.9% BOLUS 1,000 mL (0 mLs Intravenous Stopped 01/25/242029) Assessments Independent Interpretations Consultations/Discussion of Management or Tests I independently interpreted the patient's chest x-ray; reassuring against infiltrate. Social Determinants of Health affecting care: None. Disposition: The patient was discharged to home. Impression & Plan Medical Decision Making: Patient presenting with shortness of breath. Vital signs are reassuring upon arrival. On my assessment, patient has significant wheezing throughout bilateral lungs but air is moving quite well. The patient is able to speak in full sentences. Treated the patient with DuoNeb's x 3. I did obtain an x-ray and labs to evaluate for possibility of pneumonia. On my interpretation, x-rays reassuring. Given patient has no leukocytosis and no fever, low suspicion for bacterial pneumonia and will not startantibiotics at this time. Patient has been started on azithromycin for atypical coverage by urgent care provider. On reevaluation, patient had significant improvement in symptoms, much more comfortable, reduced wheezing. I feel she was appropriate for discharge. Will plan for the patient to continue use of prednisone and azithromycin and albuterol as needed. For patient's persistent cough, did prescribe short course of codeine cough syrup given duration and severity of patient's symptoms at [facility]. Recommended close follow-up with her primary career advisor for reevaluation as needed. Findingswere discussed. Additional verbal instructions were provided. I discussed specific warning signs and instructed the patient to return to the emergency department if there are any concerns. Understanding of instructions was voiced, questions were answered and the patient was discharged. Diagnosis: ICD-10-CM 1. Exacerbation of asthma, unspecified asthma severity, unspecified whether persistent J45.901 2. Moderate persistent asthma without complication J45.40 3. Acute cough R05.1 Discharge Medications: Discharge Medication List as of 01/25/2024 8:32 PM START taking these medications Details guaiFENesin-codeine (ROBITUSSIN AC) 100-10 MG/5ML solution Take 5-10 mLs by mouth every 4 hours as needed for cough, Disp-118 mL, R-0, Local Print Brooks Somers MD 01/25/242050 ET RESEARCH WORKER documented in this encounter Plan of Treatment Not on file documented as of this encounter Procedures Procedure Name Priority Date/Time Associated Diagnosis Comments XR CHEST 2 VIEWS STAT 01/25/2024 6:59 PM MARKET RESEARCH WORKER EKG 12-LEAD, TRACING ONLY STAT 01/25/2024 6:33 PM MARKET RESEARCH WORKER EXTRA HEPARINIZED SYRINGE STAT 01/25/2024 6:29 PM MARKET RESEARCH WORKER EXTRA TUBE STAT 01/25/2024 6:29 PM MARKET RESEARCH WORKER EXTRA BLOOD CULTURE BOTTLE STAT 01/25/2024 6:29 PM MARKET RESEARCH WORKER EXTRA GREEN TOP (LITHIUM HEPARIN) TUBE STAT 01/25/2024 6:29 PM MARKET RESEARCH WORKER EXTRA RED TOP TUBE STAT 01/25/2024 6: 29 PM MARKET RESEARCH WORKER EXTRA BLUE TOP TUBE STAT 01/25/2024 6 :29 PM MARKET RESEARCH WORKER CBC WITH PLATELETS AND DIFFERENTIAL STAT 01/25/2024 6:29 PM MARKET RESEARCH WORKER CBC WITH PLATELETS & DIFFERENTIAL STAT 01/25/2024 6:29 PM MARKET RESEARCH WORKER BASIC METABOLIC PANEL STAT 01/25/2024 6:29 PM MARKET RESEARCH WORKER EKG 12-LEAD, TRACING ONLY STAT 01/25/2024 6:18 PM MARKET RESEARCH WORKER documented in this encounter Results * XR Chest 2 Views (01/25/2024 6:59 PM MARKET RESEARCH WORKER) Anatomical Region Laterality Modality Chest Digital Radiogra phy 01/25/2024 6:59 PM MARKET RESEARCH WORKER Impressions 01/26/2024 11:20 AM MARKET RESEARCH WORKER IMPRESSION: Hyperexpanded lungs, suggesting underlying emphysema. No focal airspace opacity. Bilateral pleural thickening versus trace effusions. No pneumothorax. Cardiac silhouette and mediastinal contours are normal. Narrative 01/26/2024 11:20 AM MARKET RESEARCH WORKER EXAM: XR CHEST 2 VIEWS LOCATION: [facility] DATE: 01/25/2024 INDICATION: Shortness of breath COMPARISON: 01/01/2024 Procedure Note Saturnino Adams MD - 01/26/2024 EXAM: XR CHEST 2 VIEWS LOCATION: [facility] DATE: 01/25/2024 INDICATION: Shortness of breath COMPARISON: 01/01/2024 IMPRESSION: Hyperexpanded lungs, suggesting underlying emphysema. No focalairspace opacity. Bilateral pleural thickening versus trace effusions. Nopneumothorax. Cardiac silhouette and mediastinal contours are normal. Brooks Somers MD IMG DIAGNOSTIC IMAGI NG ORDERABLES * EKG 12 lead (01/25/2024 6:33 PM MARKET RESEARCH WORKER) Systolic Blood Pressure mmHg RADIOLOGY RESULTS Diastolic Blood Pressure mmHg RADIOLOGY RESULTS Ventricular Rate 70 BPM RAD IOLOGY RESULTS Atrial Rate 70 BPM RADIOLOG Y RESULTS OK Interval 152 ms RADIOLOG Y RESULTS QRS Duration 84 ms RADIOLO GY RESULTS QT 416 ms RADIOLOGY RESULTS QTc 449 ms RADIOLOGY RESULTS P Iva 81 degrees RADIOLOGY RESULTS R AXIS 76 degrees RADIOLOGY RESULTS T Iva 61 degrees RADIOLOGY RESULTS Interpretation ECG Sinus rhythm with sinus arrhythmia Normal ECG When compared with ECG of 25-JAN-2024 18:18, (unconfirmed) No significant change was found RADIOLOGY RESULTS 01/25/2024 6:33 PM MARKET RESEARCH WORKER 01/25/2024 7:35 PM MARKET RESEARCH WORKER Brooks Somers MD ECG ORDERABLES Performing Organization Address [facility]/ZIP Co de Phone Number RADIOLOGY RESULTS * Extra Heparinized Syringe (01/25/2024 6:29 PM MARKET RESEARCH WORKER) Hold Specimen [facility] 01/25/2024 7:47 PM MARKET RESEARCH WORKER [facility] Blood, venous BLOOD SPECIMEN / Unknown Venipuncture / Unknown 01/25/2024 6:29 PM MARKET RESEARCH WORKER 01/25/2024 6:38 PM MARKET RESEARCH WORKER Brooks Somers MD LAB - BLOOD ORDERABL ES Performing Organization Address [facility] Co de Phone Number [facility] [address] (1st floor, no room number) [place] [address], [facility] [phone] * Extra Green Top ([place] Heparin) Tube (01/25/2024 6:29 PM MARKET RESEARCH WORKER) Hold Specimen [facility] 01/25/2024 7:47 PM MARKET RESEARCH WORKER [facility] Blood BLOOD SPECIMEN / Unknown Venipuncture / Unknown 01/25/2024 6:29 PM MARKET RESEARCH WORKER 01/25/2024 6:38 PM MARKET RESEARCH WORKER Brooks Somers MD LAB - BLOOD ORDERABL ES Performing Organization Address City/[facility]/ZIP Co de Phone Number [facility] [address] Lab (1st floor, no room number) [place] [address], [facility] [phone] * Extra Red Top Tube (01/25/2024 6:29 PM MARKET RESEARCH WORKER) Hold Specimen [facility] 01/25/2024 7:47 PM MARKET RESEARCH WORKER [facility] Blood BLOOD SPECIMEN / Unknown Venipuncture / Unknown 01/25/2024 6:29 PM MARKET RESEARCH WORKER 01/25/2024 6:38 PM MARKET RESEARCH WORKER Brooks Somers MD LAB - BLOOD ORDERABL ES [facility] [address] Lab (1st floor, no room number) [place] [address], [facility] [phone] * Extra Blue Top Tube (01/25/2024 6:29 PM MARKET RESEARCH WORKER) Hold Specimen [facility] 01/25/2024 7:47 PM MARKET RESEARCH WORKER [facility] Blood BLOOD SPECIMEN / Unknown Venipuncture / Unknown 01/25/2024 6:29 PM MARKET RESEARCH WORKER 01/25/2024 6:38 PM MARKET RESEARCH WORKER Brooks Somers MD LAB - BLOOD ORDERABL ES Performing Organization Address [facility]/ZIP Co de Phone Number [facility] [address] Lab (1st floor, no room number) [place] [address], [place] [phone] * Extra Blood Culture Bottle (01/25/2024 6:29 PM MARKET RESEARCH WORKER) Hold Specimen [facility] 01/25/2024 7:47 PM MARKET RESEARCH WORKER [facility] Blood STRUCTURE OF RIGHT UPPER LIMB / Unknown Venipuncture / Unknown 01/25/2024 6:29 PM MARKET RESEARCH WORKER 01/25/2024 6:39 PM MARKET RESEARCH WORKER Brooks Somers MD LAB - BLOOD ORDERABL ES [facility] [address] Lab (1st floor, no room number) [place] [address], [place] [phone] * (ABNORMAL) CBC with platelets and differential (01/25/2024 6:29 PM MARKET RESEARCH WORKER) [facility] WBC Count 10.8 4.0 - 11.0 10e3/uL 01/25/2024 6:43 PM MARKET RESEARCH WORKER [facility] RBC Count 4.92 3.80 - 5.20 10e6/uL 01/25/2024 6:43 PM MARKET RESEARCH WORKER [facility] Hemoglobin 14.8 11.7 - 15.7 g/dL 01/25/2024 6:43 PM MARKET RESEARCH WORKER [facility] Hematocrit 45.5 35.0 - 47.0 % 01/25/2024 6:43 PM MARKET RESEARCH WORKER [facility] MCV 93 78 - 100 fL 01/25/2024 6:43 PM MARKET RESEARCH WORKER [facility] MCH 30.1 26.5 - 33.0 pg 01/25/2024 6:43 PM MARKET RESEARCH WORKER [facility] MCHC 32.5 31.5 - 36.5 g/dL 01/25/2024 6:43 PM MARKET RESEARCH WORKER [facility] RDW 13.2 10.0 - 15.0 % 01/25/2024 6:43 PM MARKET RESEARCH WORKER [facility] Platelet Count 342 150 - 450 10e3/uL 01/25/2024 6:43 PM MARKET RESEARCH WORKER [facility] % Neutrophils 61 % 01/25/2024 6:43 PM MARKET RESEARCH WORKER [facility] % Lymphocytes 22 % 01/25/2024 6:43 PM MARKET RESEARCH WORKER [facility] % Monocytes 5 % 01/25/2024 6:43 PM MARKET RESEARCH WORKER [facility] % Eosinophils 11 % 01/25/2024 6:43 PM MARKET RESEARCH WORKER [facility] % Basophils 1 % 01/25/2024 6:43 PM MARKET RESEARCH WORKER [facility] % Immature Granulocytes 0 % 01/25/2024 6:43 PM MARKET RESEARCH WORKER [facility] NRBCs per 100 WBC 0 <1 /100 024 6:43 PM MARKET RESEARCH WORKER [facility] Absolute Neutrophils 6.5 1.6 - 8.3 10e3/uL 01/25/2024 6:43 PM MARKET RESEARCH WORKER [facility] Absolute Lymphocytes 2.4 0.8 - 5.3 10e3/uL 01/25/2024 6:43 PM MARKET RESEARCH WORKER [facility] Absolute Monocytes 0.6 0.0 - 1.3 10e3/uL 01/25/2024 6:43 PM MARKET RESEARCH WORKER [facility] Absolute Eosinophils 1.2(H) 0.0 - 0.7 10e3/uL 01/25/2024 6:43 PM MARKET RESEARCH WORKER [facility] Absolute Basophils 0.1 0.0 - 0.2 10e3/uL 01/25/2024 6:43 PM MARKET RESEARCH WORKER [facility] Absolute Immature Granulocytes 0.0 <=0.4 10e3/uL 01/25/2024 6:43 PM MARKET RESEARCH WORKER [facility] Absolute NRBCs 0.0 10e3/uL 01/25/2024 6:43 PM MARKET RESEARCH WORKER [facility] Blood BLOOD SPECIMEN / Unknown Venipuncture / Unknown 01/25/2024 6:29 PM MARKET RESEARCH WORKER 01/25/2024 6:38 PM MARKET RESEARCH WORKER Brooks Somers MD LAB - BLOOD ORDERABL ES LABORATORY [facility] [address] [facility], no room number) [place] [address], [facility] [phone] * Basic metabolic panel (01/25/2024 6:29 PM MARKET RESEARCH WORKER) Sodium 139 135 - 145 mmol/L 01/25/2024 7:01 PM [facility] Comment:Reference intervals for this test were updated on 08/15/2023 to more accurately reflect our healthy population. There may be differences in the flagging of prior results with similar values performed with this method. Interpretation of those prior results can be made in the context of the updated reference intervals. Potassium 4.4 3.4 - 5.3 mmol/L 01/25/2024 7:01 PM [facility] Chloride 103 98 - 107 mmol/L 01/25/2024 7:01 PM [facility] Carbon Dioxide (CO2) 23 22 - 29 mmol/L 01/25/2024 7:01 PM [facility] Anion Gap 13 7 - 15 mmol/L 01/25/2024 7:01 PM [facility] Urea Nitrogen 15.8 6.0 - 20.0 mg/dL 01/25/2024 7:01 PM [facility] Creatinine 0.82 0.51 - 0.95 mg/dL 01/25/2024 7:01 PM [facility] GFR Estimate 89 >60 mL/min/1. 73m2 01/25/2024 7:01 PM MARKET RESEARCH WORKER LABORATORY Calcium 9.2 8.6 - 10.0 mg/dL 01/25/2024 7:01 PM MARKET RESEARCH WORKER LABORATORY Glucose 94 70 - 99 mg/dL 01/25/2024 7:01 PM MARKET RESEARCH WORKER LABORATORY Blood BLOOD SPECIMEN / Unknown Venipuncture / Unknown 01/25/2024 6:29 PM MARKET RESEARCH WORKER 01/25/2024 6:38 PM MARKET RESEARCH WORKER Brooks Somers MD LAB - BLOOD ORDERABL ES [facility] LAB[facility]AT[facility] [address] Lab (1st floor, no room number) [place] [address], [facility] [phone] * EKG 12-lead, tracing only (01/25/2024 6:18 PM MARKET RESEARCH WORKER) Systolic Blood Pressure mmHg RADIOLOGY RESULTS Diastolic Blood Pressure mmHg RADIOLOGY RESULTS Ventricular Rate 73 BPM RAD IOLOGY RESULTS Atrial Rate 73 BPM RADIOLOG Y RESULTS OK Interval 156 ms RADIOLOG Y RESULTS QRS Duration 84 ms RADIOLO GY RESULTS QT 410 ms RADIOLOGY RESULTS QTc 451 ms RADIOLOGY RESULTS P Iva 83 degrees RADIOLOGY RESULTS R AXIS 77 degrees RADIOLOGY RESULTS T Iva 65 degrees RADIOLOGY RESULTS Interpretation ECG Sinus rhythm Normal ECG No previous ECGs available Confirmed by - EMERGENCY ROOM, PHYSICIAN ([id number]), publication editor CHINA KNOX ([id number]) on 01/26/2024 6:54:56 AM RADIOLOGY RESULTS 01/25/2024 6:18 PM MARKET RESEARCH WORKER 01/26/2024 6:54 AM MARKET RESEARCH WORKER Brooks Somers MD ECG ORDERABLES RADIOLOGY RESULTS documented in this encounter Visit Diagnoses Diagnosis Exacerbation of asthma, unspecified asthma severity, unspecified whether persistent- Primary Moderate persistent asthma without complication Unspecified asthma Acute cough documented in this encounter Administered Medications Inactive Administered Medications - up to 3 most recent administrations Medication Order MAR Action Action Date Dose Rate Site ipratropium - albuterol 0.5 mg/2.5 mg/3 mL (DUONEB) 0.5-2.5 (3) MG/3ML neb solution Starting on Mon01/25/24 at 1815, For 1 dose, Amberly Crouch: monae simpson ipratropium - albuterol 0.5 mg/2.5 mg/3 mL (DUONEB) neb solution 3 mL 3 mL, Nebulization, EVERY 15 MIN, First dose on Chayo 01/25/24 at 1825, For 3 doses, Unless contraindicated per nursing assessment. Notify provider if dose is held. Reassess after 3rd dose and notify provider of results. $Given 01/25/2024 7:34 PM MARKET RESEARCH WORKER 3 mLs $Given 01/25/2024 6:32 PM MARKET RESEARCH WORKER 3 mLs $Given 01/25/2024 6:31 PM MARKET RESEARCH WORKER 3 mLs sodium chloride 0.9% BOLUS 1,000 mL Intravenous, 1,000 mL, ONCE, at 1,000 mL/hr, Administer over 1 Hours, On Chayo 01/25/24 at 1825, For 1 dose $New Bag 01/25/2024 6:39 PM MARKET RESEARCH WORKER 1,000 mLs 1000 mL/hr documented in this encounter Active and Recently Administered Medications Times are shown in MARKET RESEARCH WORKER. Scheduled Medication Order 01/23/2024 01/24/2024 01/25/2024 ipratropium - albuterol 0.5 mg/2.5 mg/3 mL (DUONEB) neb solution 3 mL (COMPLETED) 3 mL, Nebulization, EVERY 15 MIN, First dose on Chayo 01/25/24 at 1825, For 3 doses, Unless contraindicated per nursing assessment. Notify provider if dose is held. Reassess after 3rd dose and notify provider of results. 183 ($Given - Provi jovany: Amberly Crouch RN)1831 ($Given - Provider: Amberly Crouch, RN)1933 ($Given - Provider: Elizabeth Ye, JESSICA) sodium chloride 0.9% BOLUS 1,000 mL (COMPLETED) Intravenous, 1,000 mL, ONCE, at 1,000 mL/hr, Administer over 1 Hours, On Chayo 01/25/24 at 1825, For 1 dose 1838 ($New Bag - Pro vider: Amberly Crouch RN)2029 (Stopped - Provider: Elizabeth Ye, RN) documented in this encounter Care Teams Educational Therapist Relationship Specialty Start Date End Date [address] [place] [address] PCP - General 01/25/24 documented as of this encounter
--- OUTSIDE RECORDS SUMMARY | 2024-04-05 10:40 | XMS_ITS | Clinical Summary ---
Author Name Unknown Organization [place] Address [address] [facility] [place] [address] Care Team Providers Care Is Technician Name Role Phone Clinic, [facility] Primary Care Provider Medications Medication Sig Dispensed Refills Start Date [...] due 06/2021 Asthma 01/25/2007 Overview: with URI Encounters Date Type Department Care Team Description 01/25/2024 6:14 PM ANTHROPOLOGY AND ARCHEOLOGY INSTRUCTOR - 01/25/2024 8:47 PM ANTHROPOLOGY AND ARCHEOLOGY INSTRUCTOR [facility] Emergency Dept [address] [place] [id number] Brooks Somers MD Exacerbation of asthma, unspecified asthma severity, unspecified whether persistent (Primary Dx); Moderate persistent asthma without complication; Acute cough Discharge Disposition: Home or Self Care 01/25/2024 Travel from Last 3 Months Social History Tobacco Use Types Packs/Day Years [...] Comments Blood Pressure 116/76 01/25/2024 8:30 PM ANTHROPOLOGY AND ARCHEOLOGY INSTRUCTOR Pulse 75 01/25/2024 8:30 PM ANTHROPOLOGY AND ARCHEOLOGY INSTRUCTOR Temperature 36.9 ??C (98.4 ??F) 01/25/2024 6:11 PM CS T Respiratory Rate 26 01/25/2024 6:11 PM ANTHROPOLOGY AND ARCHEOLOGY INSTRUCTOR Oxygen Saturation 93% 01/25/2024 8:30 PM ANTHROPOLOGY AND ARCHEOLOGY INSTRUCTOR Inhaled Oxygen Concentration - - Weight 53.1 kg (117 lb) 01/25/2024 6:22 PM ANTHROPOLOGY AND ARCHEOLOGY INSTRUCTOR Height 172.7 cm (5' 8) 01/25/2024 6:22 PM ANTHROPOLOGY AND ARCHEOLOGY INSTRUCTOR Body Mass Index 17.79 01/25/2024 6:22 PM ANTHROPOLOGY AND ARCHEOLOGY INSTRUCTOR Plan of Treatment Health Maintenance Due Date Last Done Comments ADVANCE CARE PLANNING 1977 ANNUAL REVIEW OF HM ORDERS 1977 ASTHMA ACTION PLAN 1977 ASTHMA CONTROL TEST 1977 CT COLONOGRAPHY 1977 FIT 1977 FLEX SIG 1977 MAMMO SCREENING 1977 YEARLY PREVENTIVE VISIT 1977 sDNA (Cologuard) 1977 COLONOSCOPY 1987 COLORECTAL CANCER SCREENING 1987 HIV SCREENING 1992 HEPATITIS C SCREENING 1995 Pneumococcal Vaccine: Pediatrics (0 to 5 Years) and At-Risk Patients (6 to 64 Years) (2 of 2 - PCV) 05/26/2017 05/26/2016 LIPID 2017 PHQ-2 (once per calendar year) 2023 PAP 01/27/2024 01/26/2021 GLUCOSE 01/24/2027 01/25/2024 DTAP/TDAP/TD IMMUNIZATION (3 - Td or Tdap) 10/13/2033 10/13/2023, 01/14/2013, 05/08/2006 HEPATITIS B IMMUNIZATION Completed 000, 03/14/2000, 12/30/1999 IPV IMMUNIZATION Completed 04/28/2005, , 03/14/2000, Additional history exists HPV IMMUNIZATION Completed 02/12/2015, 12/2013, 08/11/2014 MENINGITIS IMMUNIZATION Aged Out 11/18/2016, 04/10 No longer eligible based on patient's age to complete this topic COVID-19 Vaccine Completed 10/13/2023, , 09/16/2021, Additional history exists INFLUENZA VACCINE Completed 10/13/2023, , 10/16/2009, Additional history exists RSV MONOCLONAL ANTIBODY Aged Out No l onger eligible based on patient's age to complete this topic Procedures Procedure Name Priority Date/Time Associated Diagnosis Comments XR CHEST 2 VIEWS STAT 01/25/2024 6:59 PM ANTHROPOLOGY AND ARCHEOLOGY INSTRUCTOR EKG 12-LEAD, TRACING ONLY STAT 01/25/2024 6:33 PM ANTHROPOLOGY AND ARCHEOLOGY INSTRUCTOR CBC WITH PLATELETS & DIFFERENTIAL STAT 01/25/2024 6:29 PM ANTHROPOLOGY AND ARCHEOLOGY INSTRUCTOR EXTRA HEPARINIZED SYRINGE STAT 01/25/2024 6:29 PM ANTHROPOLOGY AND ARCHEOLOGY INSTRUCTOR EXTRA GREEN TOP (LITHIUM HEPARIN) TUBE STAT 01/25/2024 6:29 PM ANTHROPOLOGY AND ARCHEOLOGY INSTRUCTOR EXTRA RED TOP TUBE STAT 01/25/2024 6: 29 PM ANTHROPOLOGY AND ARCHEOLOGY INSTRUCTOR EXTRA BLUE TOP TUBE STAT 01/25/2024 6 :29 PM ANTHROPOLOGY AND ARCHEOLOGY INSTRUCTOR EXTRA BLOOD CULTURE BOTTLE STAT 01/25/2024 6:29 PM ANTHROPOLOGY AND ARCHEOLOGY INSTRUCTOR CBC WITH PLATELETS AND DIFFERENTIAL STAT 01/25/2024 6:29 PM ANTHROPOLOGY AND ARCHEOLOGY INSTRUCTOR EXTRA TUBE STAT 01/25/2024 6:29 PM ANTHROPOLOGY AND ARCHEOLOGY INSTRUCTOR BASIC METABOLIC PANEL STAT 01/25/2024 6:29 PM ANTHROPOLOGY AND ARCHEOLOGY INSTRUCTOR EKG 12-LEAD, TRACING ONLY STAT 01/25/2024 6:18 PM ANTHROPOLOGY AND ARCHEOLOGY INSTRUCTOR from Last 3 Months Results * XR Chest 2 Views (01/25/2024 6:59 PM ANTHROPOLOGY AND ARCHEOLOGY INSTRUCTOR) Anatomical Region Laterality Modality Chest Digital Radiogra phy 01/25/2024 6:59 PM ANTHROPOLOGY AND ARCHEOLOGY INSTRUCTOR Impressions 01/26/2024 11:20 AM ANTHROPOLOGY AND ARCHEOLOGY INSTRUCTOR IMPRESSION: Hyperexpanded lungs, suggesting underlying emphysema. No focal airspace opacity. Bilateral pleural thickening versus trace effusions. No pneumothorax. Cardiac silhouette and mediastinal contours are normal. Narrative 01/26/2024 11:20 AM ANTHROPOLOGY AND ARCHEOLOGY INSTRUCTOR EXAM: XR CHEST 2 VIEWS LOCATION: [facility] DATE: 01/25/2024 INDICATION: Shortness of breath COMPARISON: 01/01/2024 Procedure Note Saturnino Adams MD - 01/26/2024 EXAM: XR CHEST 2 VIEWS LOCATION: [facility] DATE: 01/25/2024 INDICATION: Shortness of breath COMPARISON: 01/01/2024 IMPRESSION: Hyperexpanded lungs, suggesting underlying emphysema. No focalairspace opacity. Bilateral pleural thickening versus trace effusions. Nopneumothorax. Cardiac silhouette and mediastinal contours are normal. Brooks Somers MD IMG DIAGNOSTIC IMAGI NG ORDERABLES * EKG 12 lead (01/25/2024 6:33 PM ANTHROPOLOGY AND ARCHEOLOGY INSTRUCTOR) Only the most recent of2 resultswithin the time period is included. Systolic Blood Pressure mmHg RADIOLOGY RESULTS Diastolic Blood Pressure mmHg RADIOLOGY RESULTS Ventricular Rate 70 BPM RAD IOLOGY RESULTS Atrial Rate 70 BPM RADIOLOG Y RESULTS [place] Interval 152 ms RADIOLOG Y RESULTS QRS Duration 84 ms RADIOLO GY RESULTS QT 416 ms RADIOLOGY RESULTS QTc 449 ms RADIOLOGY RESULTS P Excel 81 degrees RADIOLOGY RESULTS R AXIS 76 degrees RADIOLOGY RESULTS T Excel 61 degrees RADIOLOGY RESULTS Interpretation ECG Sinus rhythm with sinus arrhythmia Normal ECG When compared with ECG of 25-JAN-2024 18:18, (unconfirmed) No significant change was found RADIOLOGY RESULTS 01/25/2024 6:33 PM ANTHROPOLOGY AND ARCHEOLOGY INSTRUCTOR 01/25/2024 7:35 PM ANTHROPOLOGY AND ARCHEOLOGY INSTRUCTOR Brooks Somers MD ECG ORDERABLES Performing Organization Address City/[facility]/ZIP Co de Phone Number RADIOLOGY RESULTS * Extra Heparinized Syringe (01/25/2024 6:29 PM ANTHROPOLOGY AND ARCHEOLOGY INSTRUCTOR) Hold Specimen [facility] 01/25/2024 7:47 PM ANTHROPOLOGY AND ARCHEOLOGY INSTRUCTOR [facility] Blood, venous BLOOD SPECIMEN / Unknown Venipuncture / Unknown 01/25/2024 6:29 PM ANTHROPOLOGY AND ARCHEOLOGY INSTRUCTOR 01/25/2024 6:38 PM ANTHROPOLOGY AND ARCHEOLOGY INSTRUCTOR Brooks Somers MD LAB - BLOOD ORDERABL ES Performing Organization Address [facility]/ZIP Co de Phone Number [facility] [address] Lab (1st floor, no room number) [place] [phone], [facility] [phone] * Extra Blood Culture Bottle (01/25/2024 6:29 PM ANTHROPOLOGY AND ARCHEOLOGY INSTRUCTOR) Hold Specimen [facility] 01/25/2024 7:47 PM ANTHROPOLOGY AND ARCHEOLOGY INSTRUCTOR [facility] Blood STRUCTURE OF RIGHT UPPER LIMB / Unknown Venipuncture / Unknown 01/25/2024 6:29 PM ANTHROPOLOGY AND ARCHEOLOGY INSTRUCTOR 01/25/2024 6:39 PM ANTHROPOLOGY AND ARCHEOLOGY INSTRUCTOR Brooks Somers MD LAB - BLOOD ORDERABL ES Performing Organization Address [facility]/ZIP Co de Phone Number [facility] [address] Lab (1st floor, no room number) [place] [address], [facility] [phone] * Extra Green Top ([place] Heparin) Tube (01/25/2024 6:29 PM ANTHROPOLOGY AND ARCHEOLOGY INSTRUCTOR) Hold Specimen [facility] 01/25/2024 7:47 PM ANTHROPOLOGY AND ARCHEOLOGY INSTRUCTOR [facility] Blood BLOOD SPECIMEN / Unknown Venipuncture / Unknown 01/25/2024 6:29 PM ANTHROPOLOGY AND ARCHEOLOGY INSTRUCTOR 01/25/2024 6:38 PM ANTHROPOLOGY AND ARCHEOLOGY INSTRUCTOR Brooks Somers MD LAB - BLOOD ORDERABL ES Performing Organization Address City/[facility]/ZIP Co de Phone Number [facility] [address] Lab (1st floor, no room number) [place] [address], [facility] [phone] * Extra Red Top Tube (01/25/2024 6:29 PM ANTHROPOLOGY AND ARCHEOLOGY INSTRUCTOR) Hold Specimen [facility] 01/25/2024 7:47 PM ANTHROPOLOGY AND ARCHEOLOGY INSTRUCTOR [facility] Blood BLOOD SPECIMEN / Unknown Venipuncture / Unknown 01/25/2024 6:29 PM ANTHROPOLOGY AND ARCHEOLOGY INSTRUCTOR 01/25/2024 6:38 PM ANTHROPOLOGY AND ARCHEOLOGY INSTRUCTOR Brooks Somers MD LAB - BLOOD ORDERABL ES Performing Organization Address City/[facility]/ZIP Co de Phone Number [facility] [address] Lab (1st floor, no room number) [place] [address], [facility] [phone] * Extra Blue Top Tube (01/25/2024 6:29 PM ANTHROPOLOGY AND ARCHEOLOGY INSTRUCTOR) Hold Specimen [facility] 01/25/2024 7:47 PM ANTHROPOLOGY AND ARCHEOLOGY INSTRUCTOR [facility] Blood BLOOD SPECIMEN / Unknown Venipuncture / Unknown 01/25/2024 6:29 PM ANTHROPOLOGY AND ARCHEOLOGY INSTRUCTOR 01/25/2024 6:38 PM ANTHROPOLOGY AND ARCHEOLOGY INSTRUCTOR Brooks Somers MD LAB - BLOOD ORDERABL ES Performing Organization Address City/[facility]/ZIP Co de Phone Number [facility] [address] Lab (1st floor, no room number) [place] [address], [facility] [phone] * (ABNORMAL) CBC with platelets and differential (01/25/2024 6:29 PM ANTHROPOLOGY AND ARCHEOLOGY INSTRUCTOR) WBC Count 10.8 4.0 - 11.0 10e3/uL 01/25/2024 6:43 PM ANTHROPOLOGY AND ARCHEOLOGY INSTRUCTOR [facility] RBC Count 4.92 3.80 - 5.20 10e6/uL 01/25/2024 6:43 PM ANTHROPOLOGY AND ARCHEOLOGY INSTRUCTOR [facility] Hemoglobin 14.8 11.7 - 15.7 g/dL 01/25/2024 6:43 PM ANTHROPOLOGY AND ARCHEOLOGY INSTRUCTOR [facility] Hematocrit 45.5 35.0 - 47.0 % 01/25/2024 6:43 PM ANTHROPOLOGY AND ARCHEOLOGY INSTRUCTOR [facility] MCV 93 78 - 100 fL 01/25/2024 6:43 PM ANTHROPOLOGY AND ARCHEOLOGY INSTRUCTOR [facility] MCH 30.1 26.5 - 33.0 pg 01/25/2024 6:43 PM ANTHROPOLOGY AND ARCHEOLOGY INSTRUCTOR [facility] MCHC 32.5 31.5 - 36.5 g/dL 01/25/2024 6:43 PM ANTHROPOLOGY AND ARCHEOLOGY INSTRUCTOR [facility] RDW 13.2 10.0 - 15.0 % 01/25/2024 6:43 PM ANTHROPOLOGY AND ARCHEOLOGY INSTRUCTOR [facility] Platelet Count 342 150 - 450 10e3/uL 01/25/2024 6:43 PM ANTHROPOLOGY AND ARCHEOLOGY INSTRUCTOR [facility] % Neutrophils 61 % 01/25/2024 6:43 PM ANTHROPOLOGY AND ARCHEOLOGY INSTRUCTOR [facility] % Lymphocytes 22 % 01/25/2024 6:43 PM ANTHROPOLOGY AND ARCHEOLOGY INSTRUCTOR [facility] % Monocytes 5 % 01/25/2024 6:43 PM ANTHROPOLOGY AND ARCHEOLOGY INSTRUCTOR [facility] % Eosinophils 11 % 01/25/2024 6:43 PM ANTHROPOLOGY AND ARCHEOLOGY INSTRUCTOR [facility] % Basophils 1 % 01/25/2024 6:43 PM ANTHROPOLOGY AND ARCHEOLOGY INSTRUCTOR [facility] % Immature Granulocytes 0 % 01/25/2024 6:43 PM ANTHROPOLOGY AND ARCHEOLOGY INSTRUCTOR [facility] NRBCs per 100 WBC 0 <1 /100 024 6:43 PM ANTHROPOLOGY AND ARCHEOLOGY INSTRUCTOR [facility] Absolute Neutrophils 6.5 1.6 - 8.3 10e3/uL 01/25/2024 6:43 PM ANTHROPOLOGY AND ARCHEOLOGY INSTRUCTOR [facility] Absolute Lymphocytes 2.4 0.8 - 5.3 10e3/uL 01/25/2024 6:43 PM ANTHROPOLOGY AND ARCHEOLOGY INSTRUCTOR [facility] Absolute Monocytes 0.6 0.0 - 1.3 10e3/uL 01/25/2024 6:43 PM ANTHROPOLOGY AND ARCHEOLOGY INSTRUCTOR [facility] Absolute Eosinophils 1.2(H) 0.0 - 0.7 10e3/uL 01/25/2024 6:43 PM ANTHROPOLOGY AND ARCHEOLOGY INSTRUCTOR [facility] Absolute Basophils 0.1 0.0 - 0.2 10e3/uL 01/25/2024 6:43 PM ANTHROPOLOGY AND ARCHEOLOGY INSTRUCTOR [facility] Absolute Immature Granulocytes 0.0 <=0.4 10e3/uL 01/25/2024 6:43 PM ANTHROPOLOGY AND ARCHEOLOGY INSTRUCTOR [facility] Absolute NRBCs 0.0 10e3/uL 01/25/2024 6:43 PM ANTHROPOLOGY AND ARCHEOLOGY INSTRUCTOR [facility] Blood BLOOD SPECIMEN / Unknown Venipuncture / Unknown 01/25/2024 6:29 PM ANTHROPOLOGY AND ARCHEOLOGY INSTRUCTOR 01/25/2024 6:38 PM ANTHROPOLOGY AND ARCHEOLOGY INSTRUCTOR Brooks Somers MD LAB - BLOOD ORDERABL ES [facility] Lab [address] Lab (1st floor, no room number) [place] [address], [facility] [phone] * Basic metabolic panel (01/25/2024 6:29 PM ANTHROPOLOGY AND ARCHEOLOGY INSTRUCTOR) [facility] Sodium 139 135 - 145 mmol/L 01/25/2024 7:01 PM [facility] Comment:Reference intervals for this test were updated on 08/15/2023 to more accurately reflect our healthy population. There may be differences in the flagging of prior results with similar values performed with this method. Interpretation of those prior results can be made in the context of the updated reference intervals. Potassium 4.4 3.4 - 5.3 mmol/L 01/25/2024 7:01 PM [facility] Chloride 103 98 - 107 mmol/L 01/25/2024 7:01 PM [facility] Carbon Dioxide (CO2) 23 22 - 29 mmol/L 01/25/2024 7:01 PM [facility] Anion Gap 13 7 - 15 mmol/L 01/25/2024 7:01 PM [facility] Urea Nitrogen 15.8 6.0 - 20.0 mg/dL 01/25/2024 7:01 PM [facility] Creatinine 0.82 0.51 - 0.95 mg/dL 01/25/2024 7:01 PM [facility] GFR Estimate 89 >60 mL/min/1. 73m2 01/25/2024 7:01 PM [facility] Calcium 9.2 8.6 - 10.0 mg/dL 01/25/2024 7:01 PM [facility] Glucose 94 70 - 99 mg/dL 01/25/2024 7:01 PM [facility] Blood BLOOD SPECIMEN / Unknown Venipuncture / Unknown 01/25/2024 6:29 PM ANTHROPOLOGY AND ARCHEOLOGY INSTRUCTOR 01/25/2024 6:38 PM ANTHROPOLOGY AND ARCHEOLOGY INSTRUCTOR Brooks Somers MD LAB - BLOOD ORDERABL ES [facility] Lab [address] Lab (1st floor, no room number) [place] [address], [facility] [phone] from Last 3 Months Care Teams Is Technician Relationship Specialty Start Date End Date [facility], [address] [address] PCP - General 01/25/24
--- OUTSIDE RECORDS SUMMARY | 2024-04-05 10:40 | XMS_ITS | Encounter Summary ---
Author Name Unknown Organization [place] Address [facility] [place] [address] Care Team Providers Care Marketing Proposal Specialist Name Role Phone [facility] Primary Care Provider Encounter Details Date Type Department Care Team (Latest Contact Info) Description 01/25/2024 Travel Social History Tobacco Use Types Packs/Day Years Used Date Smoking Tobacco: Never Assessed Adolescent Education Answer Date Record ed Getting School Help Needed Not on file 01/24 Sex and Gender Information Value Date Recorded Sex Assigned at Not on file Gender Identity Not on file Sexual Orientation Not on file documented as of this encounter Plan of Treatment Not on file documented as of this encounter Visit Diagnoses Not on filedocumented in this encounter Care Teams Marketing Proposal Specialist Relationship Specialty [facility] [address] [place] [address] PCP - General 01/25/24 documented as of this encounter
[2024-04-05] MEDS: LACTATED RINGERS 1000 ML 1,000 ML 35 ML IV (10:56)
[2024-04-05] MEDS: OXYMETAZOLINE 0.05% NASAL SPRAY 2 SPRAY NOSTRIL-B (10:57)
[2024-04-05] MEDS: COCAINE HCL 4 % 4 ML SOLUTION NOSTRIL-B (12:06)
--- NOTE | 2024-04-05 12:12 | W.ANESCHARGE ---
Anesthesia Charges Start Date/Time Anesthesia Start Date: 04/05/24 Anesthesia Start Time: 11:39 Stop Date/Time Anesthesia Stop Date: 04/05/24 Anesthesia Stop Time: 12:40
[2024-04-05] MEDS: BUPIVACAINE 0.5%/EPINEPHRINE 0.9 MG (30.9 ML) INJECTION (12:15)
[2024-04-05] MEDS: MUPIROCIN 1 GM PACKET 1 APPLIC TOPICAL (12:15)
[2024-04-05] MEDS: AYR SALINE NASAL GEL 1 APPLIC NOSTRIL-B (12:16)
--- NOTE | 2024-04-05 12:38 | P.ENTPROC_ITS ---
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 Image guidance was registered to 1.8 mm accuracy. The patient was prepped and draped in usual fashion after general endotracheal anesthesia had been induced. The nose was decongested and injected. The right middle turbinate was medialized and the ethmoid sinus identified and confirmed with image guidance. An anterior polypoid tissue was removed from the anterior ethmoid using a straight ethmoid forceps and up-biting ethmoid forceps. This was repeated on the left side in identical fashion. The frontal balloon was placed utilizing image guidance into the frontal recess where a single dilation was performed and then up into the entrance to the sinus were another dilation was performed. Polypoid tissue was removed from the area around the sinus opening. A stab incision was made in the left inferior turbinate a tunnel created with a Douglas dissector. The eric bone was outfractured a conservative anterior submucous resection was performed. The Coblation was used to cauterize intramurally at the anterior head of in the inferior 10%. The patient procedure well. Merocel packing was placed in each middle meatal region. She was extubated the operating room taken recovery in satisfactory condition. Blood loss was 10 mL. Surgeon: Judah Khan MD
--- NOTE | 2024-04-05 12:42 | W.ANESCHARGE ---
Anesthesia Charges Start Date/Time Anesthesia Start Date: 04/05/24 Anesthesia Start Time: 11:39 Stop Date/Time Anesthesia Stop Date: 04/05/24 Anesthesia Stop Time: 12:40
[2024-04-05] MEDS: OXYCODONE 5 MG TABLET PO (13:28)
[2024-04-05] MEDS: ACETAMINOPHEN 325 MG TABLET PO (13:28)
[2024-04-05] MEDS: LACTATED RINGERS 1000 ML 1,000 ML 100 ML IV (13:29)
--- NOTE | 2024-04-05 13:58 | SUR.PHASEII ---
1400 Patient allergic to Doxicycline. Dr. Khan had me call in for a Z-pack instead. Message left with the pharmacy dept-they were taking lunch break.
== END 2024-04-05 14:08 | disposition home or self-care (01) ==
LOC: OR 10:27
PROVIDERS: PCP Family Medicine; Visit Provider Otolaryngology
PROC: (CPT 31231; principal; 2024-04-05 11:45)
DX: J32.2 Chronic ethmoidal sinusitis (principal); J32.1 Chronic frontal sinusitis; J34.3 Hypertrophy of nasal turbinates; J34.89 Other specified disorders of nose and nasal sinuses
CPT/HCPCS: 30140; 31254; 31276; 00160; 88305; A9270; C1726; J1100; J2250; J2405; J2704; J3010; J7120

== ENCOUNTER 2024-04-09 22:23 | Emergency (ER) | payer OTHER, SELFPAY ==
[2024-04-09 22:25] VITALS: BP 161/85; PULSE 66; RESP 16; TEMP 36.1; O2SAT 98; BMI 17.8
--- OUTSIDE RECORDS SUMMARY | 2024-04-09 23:33 | XMS_ITS | Encounter Summary ---
Author Name Unknown Organization [place] Address [address] [facility] [place] [address] Care Team Providers Care Intervention Analyst Name Role Phone Marian, Margo Bainbridge Primary Care Provider Reason for Visit * Reason Comments Shortness of Breath Encounter Details Date Type Department Care Team (Late st Contact Info) Description 01/25/2024 6:14 PM [facility] - 01/25/2024 8:47 PM [facility] Emergency [facility] Emergency Dept [address] [place] [id number] [phone] Brooks Somers MD [facility] [address] [facility] [address] [id number] Exacerbation of asthma, unspecified asthma severity, unspecified [...] Comments Blood Pressure 116/76 01/25/2024 8:30 PM [facility] Pulse 75 01/25/2024 8:30 PM [facility] Temperature 36.9 ??C (98.4 ??F) 01/25/2024 6:11 PM CS T Respiratory Rate 26 01/25/2024 6:11 PM [facility] Oxygen Saturation 93% 01/25/2024 8:30 PM [facility] Inhaled Oxygen Concentration - - Weight 53.1 kg (117 lb) 01/25/2024 6:22 PM [facility] Height 172.7 cm (5' 8) 01/25/2024 6:22 PM [facility] Body Mass Index 17.79 01/25/2024 6:22 PM [facility] documented in this encounter Discharge Instructions * Discharge Instructions* Brooks Somers MD - 01/25/2024 8:19 PM [facility] Thank you for allowing us to evaluate you today. Follow up with primary career information specialist in 1-2 weeks for reevaluation.. Use the steroid, inhalers, nebs and Z-Yosi as already prescribed Use the codeine cough syrup for severe nighttime cough Please read the guidance provided with your discharge instructions. Immediately return to the emergency department with any concerns. [facility] * Attachments The following attachments cannot be sent through Care Everywhere. * Asthma: General Info (Uzbek) documented in this encounter Medications at Time [...] relieve any symptoms. Audibile wheezing in triage. [facility] * Brooks Somers MD - 01/25/2024 5:59 [...] Pressure Ventricular Rate 73 Atrial Rate 73 MA Interval 156 QRS Duration 84 QT 410 QTc 451 P [place] 83 R AXIS 77 T [place] 65 Interpretation ECG Sinus rhythm Normal ECG No previous ECGs available EKG 12 lead Value Systolic Blood Pressure Diastolic Blood Pressure Ventricular Rate 70 Atrial Rate 70 MA Interval 152 QRS Duration 84 QT 416 QTc 449 P [place] 81 R AXIS 76 T [place] 61 Interpretation ECG Sinus rhythm with sinus [...] duration and severity of patient's symptoms at [facility] Recommended close follow-up with her primary career information specialist for reevaluation as needed. Findingswere discussed. Additional [...] R-0, Local Print Brooks Somers MD 01/25/242050 [facility] documented in this encounter Plan of Treatment Not on file documented as of this encounter Procedures Procedure Name Priority Date/Time Associated Diagnosis Comments XR CHEST 2 VIEWS STAT 01/25/2024 6:59 PM [facility] EKG 12-LEAD, TRACING ONLY STAT 01/25/2024 6:33 PM [facility] EXTRA HEPARINIZED SYRINGE STAT 01/25/2024 6:29 PM [facility] EXTRA TUBE STAT 01/25/2024 6:29 PM [facility] EXTRA BLOOD CULTURE BOTTLE STAT 01/25/2024 6:29 PM [facility] EXTRA GREEN TOP (LITHIUM HEPARIN) TUBE STAT 01/25/2024 6:29 PM [facility] EXTRA RED TOP TUBE STAT 01/25/2024 6: 29 PM [facility] EXTRA BLUE TOP TUBE STAT 01/25/2024 6 :29 PM [facility] CBC WITH PLATELETS AND DIFFERENTIAL STAT 01/25/2024 6:29 PM [facility] CBC WITH PLATELETS & DIFFERENTIAL STAT 01/25/2024 6:29 PM [facility] BASIC METABOLIC PANEL STAT 01/25/2024 6:29 PM [facility] EKG 12-LEAD, TRACING ONLY STAT 01/25/2024 6:18 PM [facility] documented in this encounter Results * XR Chest 2 Views (01/25/2024 6:59 PM [facility]) Anatomical Region Laterality Modality Chest Digital Radiogra phy 01/25/2024 6:59 PM [facility] Impressions 01/26/2024 11:20 AM [facility] IMPRESSION: Hyperexpanded lungs, suggesting underlying emphysema. No focal airspace opacity. Bilateral pleural thickening versus trace effusions. No pneumothorax. Cardiac silhouette and mediastinal contours are normal. Narrative 01/26/2024 11:20 AM [facility] EXAM: XR CHEST 2 VIEWS LOCATION: [facility] DATE: 01/25/2024 INDICATION: Shortness of breath COMPARISON: 01/01/2024 Procedure Note Saturnino Adams MD - 01/26/2024 EXAM: XR CHEST 2 VIEWS LOCATION: [facility] DATE: 01/25/2024 INDICATION: Shortness of breath COMPARISON: 01/01/2024 IMPRESSION: Hyperexpanded lungs, suggesting underlying emphysema. No focalairspace opacity. Bilateral pleural thickening versus trace effusions. Nopneumothorax. Cardiac silhouette and mediastinal contours are normal. Brooks Somers MD IMG DIAGNOSTIC IMAGI NG ORDERABLES * EKG 12 lead (01/25/2024 6:33 PM [facility]) Systolic Blood Pressure mmHg RADIOLOGY RESULTS Diastolic Blood Pressure mmHg RADIOLOGY RESULTS Ventricular Rate 70 BPM RAD IOLOGY RESULTS Atrial Rate 70 BPM RADIOLOG Y RESULTS MA Interval 152 ms RADIOLOG Y RESULTS QRS Duration 84 ms RADIOLO GY RESULTS QT 416 ms RADIOLOGY RESULTS QTc 449 ms RADIOLOGY RESULTS P [place] 81 degrees RADIOLOGY RESULTS R AXIS 76 degrees RADIOLOGY RESULTS T [place] 61 degrees RADIOLOGY RESULTS Interpretation ECG Sinus rhythm with sinus arrhythmia Normal ECG When compared with ECG of 25-JAN-2024 18:18, (unconfirmed) No significant change was found RADIOLOGY RESULTS 01/25/2024 6:33 PM [facility] 01/25/2024 7:35 PM [facility] Brooks Somers MD ECG ORDERABLES Performing Organization Address [facility]/ZIP Co de Phone Number RADIOLOGY RESULTS * Extra Heparinized Syringe (01/25/2024 6:29 PM [facility]) Hold Specimen [facility] 01/25/2024 7:47 PM [facility] Blood, venous BLOOD SPECIMEN / Unknown Venipuncture / Unknown 01/25/2024 6:29 PM [facility] 01/25/2024 6:38 PM [facility] Brooks Somers MD LAB - BLOOD ORDERABL ES Performing Organization Address [facility] Co de Phone Number [facility] Lab [address] Lab (1st floor, no room number) [place] [address], [facility] [phone] * Extra Green Top ([place] Heparin) Tube (01/25/2024 6:29 PM [facility]) Hold Specimen [facility] 01/25/2024 7:47 PM [facility] Blood BLOOD SPECIMEN / Unknown Venipuncture / Unknown 01/25/2024 6:29 PM [facility] 01/25/2024 6:38 PM [facility] Brooks Somers MD LAB - BLOOD ORDERABL ES Performing Organization Address City/[facility]/ZIP Co de Phone Number [facility] Lab [address] Lab (1st floor, no room number) [place] [address], [facility] [phone] * Extra Red Top Tube (01/25/2024 6:29 PM [facility]) Hold Specimen [facility] 01/25/2024 7:47 PM [facility] Blood BLOOD SPECIMEN / Unknown Venipuncture / Unknown 01/25/2024 6:29 PM [facility] 01/25/2024 6:38 PM [facility] Brooks Somers MD LAB - BLOOD ORDERABL ES [facility] Lab [address] Lab (1st floor, no room number) [place] [address], [facility] [phone] * Extra Blue Top Tube (01/25/2024 6:29 PM [facility]) Hold Specimen [facility] 01/25/2024 7:47 PM [facility] Blood BLOOD SPECIMEN / Unknown Venipuncture / Unknown 01/25/2024 6:29 PM [facility] 01/25/2024 6:38 PM [facility] Brooks Somers MD LAB - BLOOD ORDERABL ES Performing Organization Address [facility]/ZIP Co de Phone Number [facility] Lab [address] Lab (1st floor, no room number) [place] [address], [place] [phone] * Extra Blood Culture Bottle (01/25/2024 6:29 PM [facility]) Hold Specimen [facility] 01/25/2024 7:47 PM [facility] Blood STRUCTURE OF RIGHT UPPER LIMB / Unknown Venipuncture / Unknown 01/25/2024 6:29 PM [facility] 01/25/2024 6:39 PM [facility] Brooks Somers MD LAB - BLOOD ORDERABL ES [facility] Lab [address] Lab (1st floor, no room number) [place] [address], [place] [phone] * (ABNORMAL) CBC with platelets and differential (01/25/2024 6:29 PM [facility] BR[facility]HER) [facility] WBC Count 10.8 4.0 - 11.0 10e3/uL 01/25/2024 6:43 PM [facility] RBC Count 4.92 3.80 - 5.20 10e6/uL 01/25/2024 6:43 PM [facility] Hemoglobin 14.8 11.7 - 15.7 g/dL 01/25/2024 6:43 PM [facility] Hematocrit 45.5 35.0 - 47.0 % 01/25/2024 6:43 PM [facility] MCV 93 78 - 100 fL 01/25/2024 6:43 PM [facility] MCH 30.1 26.5 - 33.0 pg 01/25/2024 6:43 PM [facility] MCHC 32.5 31.5 - 36.5 g/dL 01/25/2024 6:43 PM [facility] RDW 13.2 10.0 - 15.0 % 01/25/2024 6:43 PM [facility] Platelet Count 342 150 - 450 10e3/uL 01/25/2024 6:43 PM [facility] % Neutrophils 61 % 01/25/2024 6:43 PM [facility] % Lymphocytes 22 % 01/25/2024 6:43 PM [facility] % Monocytes 5 % 01/25/2024 6:43 PM [facility] % Eosinophils 11 % 01/25/2024 6:43 PM [facility] % Basophils 1 % 01/25/2024 6:43 PM [facility] % Immature Granulocytes 0 % 01/25/2024 6:43 PM [facility] NRBCs per 100 WBC 0 <1 /100 024 6:43 PM [facility] Absolute Neutrophils 6.5 1.6 - 8.3 10e3/uL 01/25/2024 6:43 PM [facility] Absolute Lymphocytes 2.4 0.8 - 5.3 10e3/uL 01/25/2024 6:43 PM [facility] Absolute Monocytes 0.6 0.0 - 1.3 10e3/uL 01/25/2024 6:43 PM [facility] Absolute Eosinophils 1.2(H) 0.0 - 0.7 10e3/uL 01/25/2024 6:43 PM [facility] Absolute Basophils 0.1 0.0 - 0.2 10e3/uL 01/25/2024 6:43 PM [facility] Absolute Immature Granulocytes 0.0 <=0.4 10e3/uL 01/25/2024 6:43 PM [facility] Absolute NRBCs 0.0 10e3/uL 01/25/2024 6:43 PM [facility] Blood BLOOD SPECIMEN / Unknown Venipuncture / Unknown 01/25/2024 6:29 PM [facility] 01/25/2024 6:38 PM [facility] Brooks Somers MD LAB - BLOOD ORDERABL ES LABORATORY [facility] [address] [facility] Lab (1st floor, no room number) [place] [address], [facility] [phone] * Basic metabolic panel (01/25/2024 6:29 PM B[facility] BRUSHER) Sodium 139 135 - 145 mmol/L 01/25/2024 7:[address] [facility] Comment:Reference intervals for this test were updated on 08/15/2023 to more accurately reflect our healthy population. There may be differences in the flagging of prior results with similar values performed with this method. Interpretation of those prior results can be made in the context of the updated reference intervals. Potassium 4.4 3.4 - 5.3 mmol/L 01/25/2024 7:[address] [facility] Chloride 103 98 - 107 mmol/L 01/25/2024 7:[address] [facility] Carbon Dioxide (CO2) 23 22 - 29 mmol/L 01/25/2024 7:[address] [facility] Anion Gap 13 7 - 15 mmol/L 01/25/2024 7:[address] [facility] Urea Nitrogen 15.8 6.0 - 20.0 mg/dL 01/25/2024 7:[address] [facility] Creatinine 0.82 0.51 - 0.95 mg/dL 01/25/2024 7:[address] [facility] GFR Estimate 89 >60 mL/min/1. 73m2 01/25/2024 7:01 PM [facility] Calcium 9.2 8.6 - 10.0 mg/dL 01/25/2024 7:01 PM [facility] Glucose 94 70 - 99 mg/dL 01/25/2024 7:01 PM [facility] Blood BLOOD SPECIMEN / Unknown Venipuncture / Unknown 01/25/2024 6:29 PM [facility] 01/25/2024 6:38 PM [facility] Brooks Somers MD LAB - BLOOD ORDERABL ES [facility] Lab [address] Lab (1st floor, no room number) [place] [address], [facility] [phone] * EKG 12-lead, tracing only (01/25/2024 6:18 PM [facility]) Systolic Blood Pressure mmHg RADIOLOGY RESULTS Diastolic Blood Pressure mmHg RADIOLOGY RESULTS Ventricular Rate 73 BPM RAD IOLOGY RESULTS Atrial Rate 73 BPM RADIOLOG Y RESULTS MA Interval 156 ms RADIOLOG Y RESULTS QRS Duration 84 ms RADIOLO GY RESULTS QT 410 ms RADIOLOGY RESULTS QTc 451 ms RADIOLOGY RESULTS P [place] 83 degrees RADIOLOGY RESULTS R AXIS 77 degrees RADIOLOGY RESULTS T [place] 65 degrees RADIOLOGY RESULTS Interpretation ECG Sinus rhythm Normal ECG No previous ECGs available Confirmed by - EMERGENCY ROOM, PHYSICIAN ([id number]), health editor CHINA KNOX ([id number]) on 01/26/2024 6:54:56 AM RADIOLOGY RESULTS 01/25/2024 6:18 PM [facility] 01/26/2024 6:54 AM [facility] Brooks Somers MD ECG ORDERABLES RADIOLOGY RESULTS [...] provider of results. $Given 01/25/2024 7:34 PM [facility] 3 mLs $Given 01/25/2024 6:32 PM [facility] 3 mLs $Given 01/25/2024 6:31 PM [facility] 3 mLs sodium chloride 0.9% BOLUS 1,000 mL Intravenous, 1,000 mL, ONCE, at 1,000 mL/hr, Administer over 1 Hours, On Chayo 01/25/24 at 1825, For 1 dose $New Bag 01/25/2024 6:39 PM [facility] 1,000 mLs 1000 mL/hr documented in this encounter Active and Recently Administered Medications Times are shown in [facility]. Scheduled Medication Order 01/23/2024 01/24/2024 01/25/2024 ipratropium [...] RN) documented in this encounter Care Teams Intervention Analyst Relationship Specialty Start Date End Date [address] [place] [address] PCP - General 01/25/24 documented as of this encounter
--- OUTSIDE RECORDS SUMMARY | 2024-04-09 23:33 | XMS_ITS | Clinical Summary ---
Author Name Unknown Organization [facility] Address [place], [place] [address] Care Team Providers Care High [address] Justice Name Role Phone Pcp, No Primary Care [...] Good Health Mother Heart Disease Paternal Grandfather [place] in 1993 or , also skin melanoma [...] Comments Blood Pressure 133/73 01/01/2024 1:45 PM [facility] Pulse 82 01/01/2024 1:45 PM [facility] Temperature 37.2 ??C (98.9 ??F) 01/01/2024 1:45 PM CS T Respiratory Rate 16 01/01/2024 1:45 PM [facility] Oxygen Saturation 95% 01/01/2024 1:45 PM [facility] Inhaled Oxygen Concentration - - Weight 54.4 kg (120 lb) 01/01/2024 1:45 PM [facility] Height 172.7 cm (5' 8) 01/01/2024 1:45 PM [facility] Body Mass Index 18.25 01/01/2024 1:45 PM [facility] Plan of Treatment Health Maintenance Due Date [...] Procedure Name Priority Date/Time Associated Diagnosis Comments ANTENNA ENGINEER THIN PREP PAP SCREEN IMAGED Routine 01/26/2021 2:00 PM [facility] LIPID PANEL W REFLEX MEASURED LDL Routine 10/30/2015 12:18 PM [facility] Screening for lipoid disorders from Last 3 Months or Most Recently Relevant to Health Maintenance Results * ANTENNA ENGINEER THIN PREP PAP SCREEN IMAGED (01/26/2021 2:00 PM [facility]) Case Report Gynecologic Cytology Report ? Case: [id number] ? Authorizing Provider: ??Prerna Barnett MD ??Collected: ? 01/26/2021 1400 ? Ordering Location: ? [facility] ?Received: ?01/28/2021 1509 ? First Screen: ?Carlos, Barry ? Specimen: ?ANTENNA ENGINEER ThinPrep Vial Screening, Cervical/Vaginal ? 02/05/2021 2:41 PM CDT [facility] INTERPRETATION/ RESULT NEGATIVE FOR INTRAEPITHELIAL LESION OR MALIGNANCY (NIL) (none) 02/05/2021 2:41 PM CDT [facility] IMEN ADEQUACY Satisfactory for evaluation Endocervical component present 02/05/2021 2:41 PM [facility] HPV REQUEST HPV if ASCUS 02/05/2021 2:41 PM CDT [facility] Date of LMP 02/05/2021 2:41 PM T [facility] Comment:Unknown Last Pap Date 02/05/2021 2:41 PM CDT [facility] Comment:Unknown Last Pap Result NIL 2:41 PM CDT [facility] Additional Information 02/05/2021 2:41 PM CDT [facility] Comment: Interpreted at [facility] Central Laboratory - [address] [facility] [address] [address] Automated Review Successful 02/05/2021 2:41 PM T [facility] Comment:Specimen processed s uccessfully by automated personal counselor device, ThinPrep Imaging System, [employer] Note The pap test is a [...] and malignant lesions. 02/05/2021 2:41 PM CDT [facility] Other (Cervical/Vagina l) 01/26/2021 2:00 PM [facility] 01/28/2021 3:09 PM [facility] Prerna Barnett MD PATHOLOGY/CYTOLO GY [facility] [address] [place] [address], * LIPID PANEL W REFLEX MEASURED LDL (10/30/2015 12:18 PM [facility]) CHOLESTEROL,TOTAL 180 100 - 199 mg/dL 10/30/2015 1:09 PM [facility] TRIGLYCERIDES 42 <150 mg/dL 10/30/2015 1:09 PM [facility] HDL CHOLESTEROL 79 >40 mg/dL 10/30/2015 1:09 PM [facility] NON-HDL CHOLESTEROL 101 <145 mg/dl 10/30/2015 1:09 PM [facility] CHOL/HDL RATIO 2.28 <4.50 10/30/2015 1:09 PM [facility] LDL CHOLESTEROL 93 <=130 mg/dL 10/30/2015 1:09 PM [facility] PATIENT STATUS FASTING 10/30/2015 1:09 PM [facility] Blood specimen (specimen) BLOOD SPECIMEN / Unknown Venipuncture / Unknown 10/30/2015 12:18 PM [facility] 10/30/2015 12:18 PM [facility] Violet Perez MD CHEMISTRY [facility] [address] [place] [address], from Last 3 Months or Most Recently Relevant to Health Maintenance Care Teams High [address] Justice Relationship Specialty Start Date End Date Pcp, No . PCP - General 12/28/18
--- OUTSIDE RECORDS SUMMARY | 2024-04-09 23:33 | XMS_ITS | Clinical Summary ---
Author Name Unknown Organization [place] Address [address] [place] [address] Care Team Providers Care Cover Maker Name Role Phone Clinic, [facility] Primary Care Provider Medications Medication Sig Dispensed [...] Department Care Team Description 01/25/2024 6:14 PM CALCULUS PROFESSOR - 01/25/2024 8:47 PM CALCULUS PROFESSOR [facility] Emergency Dept [address] [place] [phone] Brooks Somers MD Exacerbation of asthma, unspecified [...] Comments Blood Pressure 116/76 01/25/2024 8:30 PM CALCULUS PROFESSOR Pulse 75 01/25/2024 8:30 PM CALCULUS PROFESSOR Temperature 36.9 ??C (98.4 ??F) 01/25/2024 6:11 PM CS T Respiratory Rate 26 01/25/2024 6:11 PM CALCULUS PROFESSOR Oxygen Saturation 93% 01/25/2024 8:30 PM CALCULUS PROFESSOR Inhaled Oxygen Concentration - - Weight 53.1 kg (117 lb) 01/25/2024 6:22 PM CALCULUS PROFESSOR Height 172.7 cm (5' 8) 01/25/2024 6:22 PM CALCULUS PROFESSOR Body Mass Index 17.79 01/25/2024 6:22 PM CALCULUS PROFESSOR Plan of Treatment Health Maintenance Due Date [...] CHEST 2 VIEWS STAT 01/25/2024 6:59 PM CALCULUS PROFESSOR EKG 12-LEAD, TRACING ONLY STAT 01/25/2024 6:33 PM CALCULUS PROFESSOR CBC WITH PLATELETS & DIFFERENTIAL STAT 01/25/2024 6:29 PM CALCULUS PROFESSOR EXTRA HEPARINIZED SYRINGE STAT 01/25/2024 6:29 PM CALCULUS PROFESSOR EXTRA GREEN TOP (LITHIUM HEPARIN) TUBE STAT 01/25/2024 6:29 PM CALCULUS PROFESSOR EXTRA RED TOP TUBE STAT 01/25/2024 6: 29 PM CALCULUS PROFESSOR EXTRA BLUE TOP TUBE STAT 01/25/2024 6 :29 PM CALCULUS PROFESSOR EXTRA BLOOD CULTURE BOTTLE STAT 01/25/2024 6:29 PM CALCULUS PROFESSOR CBC WITH PLATELETS AND DIFFERENTIAL STAT 01/25/2024 6:29 PM CALCULUS PROFESSOR EXTRA TUBE STAT 01/25/2024 6:29 PM CALCULUS PROFESSOR BASIC METABOLIC PANEL STAT 01/25/2024 6:29 PM CALCULUS PROFESSOR EKG 12-LEAD, TRACING ONLY STAT 01/25/2024 6:18 PM CALCULUS PROFESSOR from Last 3 Months Results * XR Chest 2 Views (01/25/2024 6:59 PM CALCULUS PROFESSOR) Anatomical Region Laterality Modality Chest Digital Radiogra phy 01/25/2024 6:59 PM CALCULUS PROFESSOR Impressions 01/26/2024 11:20 AM CALCULUS PROFESSOR IMPRESSION: Hyperexpanded lungs, suggesting underlying emphysema. No focal airspace opacity. Bilateral pleural thickening versus trace effusions. No pneumothorax. Cardiac silhouette and mediastinal contours are normal. Narrative 01/26/2024 11:20 AM CALCULUS PROFESSOR EXAM: XR CHEST 2 VIEWS LOCATION: [facility] DATE: 01/25/2024 INDICATION: Shortness of breath COMPARISON: 01/01/2024 Procedure Note Saturnino Adams MD - 01/26/2024 EXAM: XR CHEST 2 VIEWS LOCATION: [facility] DATE: 01/25/2024 INDICATION: Shortness of breath COMPARISON: 01/01/2024 IMPRESSION: Hyperexpanded lungs, suggesting underlying emphysema. No focalairspace opacity. Bilateral pleural thickening versus trace effusions. Nopneumothorax. Cardiac silhouette and mediastinal contours are normal. Brooks Somers MD IMG DIAGNOSTIC IMAGI NG ORDERABLES * EKG 12 lead (01/25/2024 6:33 PM CALCULUS PROFESSOR) Only the most recent of2 resultswithin the time period is included. Systolic Blood Pressure mmHg RADIOLOGY RESULTS Diastolic Blood Pressure mmHg RADIOLOGY RESULTS Ventricular Rate 70 BPM RAD IOLOGY RESULTS Atrial Rate 70 BPM RADIOLOG Y RESULTS ID Interval 152 ms RADIOLOG Y RESULTS QRS Duration 84 ms RADIOLO GY RESULTS QT 416 ms RADIOLOGY RESULTS QTc 449 ms RADIOLOGY RESULTS P [place] 81 degrees RADIOLOGY RESULTS R AXIS 76 degrees RADIOLOGY RESULTS T [place] 61 degrees RADIOLOGY RESULTS Interpretation ECG Sinus rhythm with sinus arrhythmia Normal ECG When compared with ECG of 25-JAN-2024 18:18, (unconfirmed) No significant change was found RADIOLOGY RESULTS 01/25/2024 6:33 PM CALCULUS PROFESSOR 01/25/2024 7:35 PM CALCULUS PROFESSOR Brooks Somers MD ECG ORDERABLES Performing Organization Address City/[facility]/ZIP Co de Phone Number RADIOLOGY RESULTS * Extra Heparinized Syringe (01/25/2024 6:29 PM CALCULUS PROFESSOR) Hold Specimen [facility] 01/25/2024 7:47 PM CALCULUS PROFESSOR [facility] Blood, venous BLOOD SPECIMEN / Unknown Venipuncture / Unknown 01/25/2024 6:29 PM CALCULUS PROFESSOR 01/25/2024 6:38 PM CALCULUS PROFESSOR Brooks Somers MD LAB - BLOOD ORDERABL ES Performing Organization Address [facility]/ZIP Co de Phone Number [facility] [address] Lab (1st floor, no room number) [place] [phone], [facility] [phone] * Extra Blood Culture Bottle (01/25/2024 6:29 PM CALCULUS PROFESSOR) Hold Specimen [facility] 01/25/2024 7:47 PM CALCULUS PROFESSOR [facility] Blood STRUCTURE OF RIGHT UPPER LIMB / Unknown Venipuncture / Unknown 01/25/2024 6:29 PM CALCULUS PROFESSOR 01/25/2024 6:39 PM CALCULUS PROFESSOR Brooks Somers MD LAB - BLOOD ORDERABL ES Performing Organization Address [facility]/ZIP Co de Phone Number [facility] [address] Lab (1st floor, no room number) [place] [address], [facility] [phone] * Extra Green Top ([place] Heparin) Tube (01/25/2024 6:29 PM CALCULUS PROFESSOR) Hold Specimen [facility] 01/25/2024 7:47 PM CALCULUS PROFESSOR [facility] Blood BLOOD SPECIMEN / Unknown Venipuncture / Unknown 01/25/2024 6:29 PM CALCULUS PROFESSOR 01/25/2024 6:38 PM CALCULUS PROFESSOR Brooks Somers MD LAB - BLOOD ORDERABL ES Performing Organization Address City/[facility]/ZIP Co de Phone Number [facility] [address] Lab (1st floor, no room number) [place] [address], [facility] [phone] * Extra Red Top Tube (01/25/2024 6:29 PM CALCULUS PROFESSOR) Hold Specimen [facility] 01/25/2024 7:47 PM CALCULUS PROFESSOR [facility] Blood BLOOD SPECIMEN / Unknown Venipuncture / Unknown 01/25/2024 6:29 PM CALCULUS PROFESSOR 01/25/2024 6:38 PM CALCULUS PROFESSOR Brooks Somers MD LAB - BLOOD ORDERABL ES Performing Organization Address City/[facility]/ZIP Co de Phone Number [facility] [address] Lab (1st floor, no room number) [place] [address], [facility] [phone] * Extra Blue Top Tube (01/25/2024 6:29 PM CALCULUS PROFESSOR) Hold Specimen [facility] 01/25/2024 7:47 PM CALCULUS PROFESSOR [facility] Blood BLOOD SPECIMEN / Unknown Venipuncture / Unknown 01/25/2024 6:29 PM CALCULUS PROFESSOR 01/25/2024 6:38 PM CALCULUS PROFESSOR Brooks Somers MD LAB - BLOOD ORDERABL ES Performing Organization Address City/[facility]/ZIP Co de Phone Number [facility] Care Lab [address] Lab (1st floor, no room number) [place] [address], [facility] [phone] * (ABNORMAL) CBC with platelets and differential (01/25/2024 6:29 PM CALCULUS PROFESSOR) WBC Count 10.8 4.0 - 11.0 10e3/uL 01/25/2024 6:43 PM CALCULUS PROFESSOR [facility] RBC Count 4.92 3.80 - 5.20 10e6/uL 01/25/2024 6:43 PM CALCULUS PROFESSOR [facility] Hemoglobin 14.8 11.7 - 15.7 g/dL 01/25/2024 6:43 PM CALCULUS PROFESSOR [facility] Hematocrit 45.5 35.0 - 47.0 % 01/25/2024 6:43 PM CALCULUS PROFESSOR [facility] MCV 93 78 - 100 fL 01/25/2024 6:43 PM CALCULUS PROFESSOR [facility] MCH 30.1 26.5 - 33.0 pg 01/25/2024 6:43 PM CALCULUS PROFESSOR [facility] MCHC 32.5 31.5 - 36.5 g/dL 01/25/2024 6:43 PM CALCULUS PROFESSOR [facility] RDW 13.2 10.0 - 15.0 % 01/25/2024 6:43 PM CALCULUS PROFESSOR [facility] Platelet Count 342 150 - 450 10e3/uL 01/25/2024 6:43 PM CALCULUS PROFESSOR [facility] % Neutrophils 61 % 01/25/2024 6:43 PM CALCULUS PROFESSOR [facility] % Lymphocytes 22 % 01/25/2024 6:43 PM CALCULUS PROFESSOR [facility] % Monocytes 5 % 01/25/2024 6:43 PM CALCULUS PROFESSOR [facility] % Eosinophils 11 % 01/25/2024 6:43 PM CALCULUS PROFESSOR [facility] % Basophils 1 % 01/25/2024 6:43 PM CALCULUS PROFESSOR [facility] % Immature Granulocytes 0 % 01/25/2024 6:43 PM CALCULUS PROFESSOR [facility] NRBCs per 100 WBC 0 <1 /100 024 6:43 PM CALCULUS PROFESSOR [facility] Absolute Neutrophils 6.5 1.6 - 8.3 10e3/uL 01/25/2024 6:43 PM CALCULUS PROFESSOR [facility] Absolute Lymphocytes 2.4 0.8 - 5.3 10e3/uL 01/25/2024 6:43 PM CALCULUS PROFESSOR [facility] Absolute Monocytes 0.6 0.0 - 1.3 10e3/uL 01/25/2024 6:43 PM CALCULUS PROFESSOR [facility] Absolute Eosinophils 1.2(H) 0.0 - 0.7 10e3/uL 01/25/2024 6:43 PM CALCULUS PROFESSOR [facility] Absolute Basophils 0.1 0.0 - 0.2 10e3/uL 01/25/2024 6:43 PM CALCULUS PROFESSOR [facility] Absolute Immature Granulocytes 0.0 <=0.4 10e3/uL 01/25/2024 6:43 PM CALCULUS PROFESSOR [facility] Absolute NRBCs 0.0 10e3/uL 01/25/2024 6:43 PM CALCULUS PROFESSOR [facility] Blood BLOOD SPECIMEN / Unknown Venipuncture / Unknown 01/25/2024 6:29 PM CALCULUS PROFESSOR 01/25/2024 6:38 PM CALCULUS PROFESSOR Brooks Somers MD LAB - BLOOD ORDERABL ES [facility] LAB[facility] Acute Care Lab [address] Lab (1st floor, no room number) [place] [address], [facility] [phone] * Basic metabolic panel (01/25/2024 6:29 PM CALCULUS PROFESSOR) [facility] Sodium 139 135 - 145 mmol/L 01/25/2024 7:01 PM [facility] Comment:Reference intervals for this test were updated on 08/15/2023 to more accurately reflect our healthy population. There may be differences in the flagging of prior results with similar values performed with this method. Interpretation of those prior results can be made in the context of the updated reference intervals. Potassium 4.4 3.4 - 5.3 mmol/L 01/25/2024 7:01 PM [facility] Chloride 103 98 - 107 mmol/L 01/25/2024 7:01 PM [facility] Carbon Dioxide (CO2) 23 22 - 29 mmol/L 01/25/2024 7:01 PM [facility] Anion Gap 13 7 - 15 mmol/L 01/25/2024 7:01 PM [facility] Urea Nitrogen 15.8 6.0 - 20.0 mg/dL 01/25/2024 7:01 PM [facility] Creatinine 0.82 0.51 - 0.95 mg/dL 01/25/2024 7:01 PM [facility] GFR Estimate 89 >60 mL/min/1. 73m2 01/25/2024 7:01 PM [facility] Calcium 9.2 8.6 - 10.0 mg/dL 01/25/2024 7:01 PM [facility] Glucose 94 70 - 99 mg/dL 01/25/2024 7:01 PM [facility] Blood BLOOD SPECIMEN / Unknown Venipuncture / Unknown 01/25/2024 6:29 PM CALCULUS PROFESSOR 01/25/2024 6:38 PM CALCULUS PROFESSOR Brooks Somers MD LAB - BLOOD ORDERABL ES [facility] Acute Care Lab [address] Lab (1st floor, no room number) [place] [address], [facility] [phone] from Last 3 Months Care Teams Cover Maker Relationship Specialty Start Date End Date [facility], [address] [address] PCP - General 01/25/24
--- OUTSIDE RECORDS SUMMARY | 2024-04-09 23:33 | XMS_ITS | Encounter Summary ---
Author Name Unknown Organization [place] Address [facility] [address] Care Team Providers Care Brilliandeer Looper Name Role Phone Marian [facility] Primary Care Provider Encounter Details Date [...] on filedocumented in this encounter Care Teams Brilliandeer Looper Relationship Specialty Start [facility] [address] [place] [address] PCP - General 01/25/24 documented as of this encounter
--- OUTSIDE RECORDS SUMMARY | 2024-04-09 23:33 | XMS_ITS | Referral Summary ---
Author Name Unknown Organization [place] Address [address] [place] [place] [address] Care Team Providers Care Landscape Manager Name Role Phone Marian, Margo Collins Primary Care Provider Encounters Date Type Department Care Team Description 01/25/2024 Travel 01/25/2024 6:14 PM VENETIAN BLIND TAPE CUTTER - 01/25/2024 8:47 PM VENETIAN BLIND TAPE CUTTER Emergency [facility] Emergency Dept [address] [place] [phone] Brooks Somers MD Exacerbation of asthma, unspecified [...] Comments Blood Pressure 116/76 01/25/2024 8:30 PM VENETIAN BLIND TAPE CUTTER Pulse 75 01/25/2024 8:30 PM VENETIAN BLIND TAPE CUTTER Temperature 36.9 ??C (98.4 ??F) 01/25/2024 6:11 PM CS T Respiratory Rate 26 01/25/2024 6:11 PM VENETIAN BLIND TAPE CUTTER Oxygen Saturation 93% 01/25/2024 8:30 PM VENETIAN BLIND TAPE CUTTER Inhaled Oxygen Concentration - - Weight 53.1 kg (117 lb) 01/25/2024 6:22 PM VENETIAN BLIND TAPE CUTTER Height 172.7 cm (5' 8) 01/25/2024 6:22 PM VENETIAN BLIND TAPE CUTTER Body Mass Index 17.79 01/25/2024 6:22 PM VENETIAN BLIND TAPE CUTTER Plan of Treatment Not on file Procedures Procedure Name Priority Date/Time Associated Diagnosis Comments XR CHEST 2 VIEWS STAT 01/25/2024 6:59 PM VENETIAN BLIND TAPE CUTTER EKG 12-LEAD, TRACING ONLY STAT 01/25/2024 6:33 PM VENETIAN BLIND TAPE CUTTER CBC WITH PLATELETS & DIFFERENTIAL STAT 01/25/2024 6:29 PM VENETIAN BLIND TAPE CUTTER EXTRA HEPARINIZED SYRINGE STAT 01/25/2024 6:29 PM VENETIAN BLIND TAPE CUTTER EXTRA GREEN TOP (LITHIUM HEPARIN) TUBE STAT 01/25/2024 6:29 PM VENETIAN BLIND TAPE CUTTER EXTRA RED TOP TUBE STAT 01/25/2024 6: 29 PM VENETIAN BLIND TAPE CUTTER EXTRA BLUE TOP TUBE STAT 01/25/2024 6 :29 PM VENETIAN BLIND TAPE CUTTER EXTRA BLOOD CULTURE BOTTLE STAT 01/25/2024 6:29 PM VENETIAN BLIND TAPE CUTTER CBC WITH PLATELETS AND DIFFERENTIAL STAT 01/25/2024 6:29 PM VENETIAN BLIND TAPE CUTTER EXTRA TUBE STAT 01/25/2024 6:29 PM VENETIAN BLIND TAPE CUTTER BASIC METABOLIC PANEL STAT 01/25/2024 6:29 PM VENETIAN BLIND TAPE CUTTER EKG 12-LEAD, TRACING ONLY STAT 01/25/2024 6:18 PM VENETIAN BLIND TAPE CUTTER from Last 3 Months Results * XR Chest 2 Views (01/25/2024 6:59 PM VENETIAN BLIND TAPE CUTTER) Anatomical Region Laterality Modality Chest Digital Radiogra phy 01/25/2024 6:59 PM VENETIAN BLIND TAPE CUTTER Impressions 01/26/2024 11:20 AM VENETIAN BLIND TAPE CUTTER IMPRESSION: Hyperexpanded lungs, suggesting underlying emphysema. No focal airspace opacity. Bilateral pleural thickening versus trace effusions. No pneumothorax. Cardiac silhouette and mediastinal contours are normal. Narrative 01/26/2024 11:20 AM VENETIAN BLIND TAPE CUTTER EXAM: XR CHEST 2 VIEWS LOCATION: [facility] DATE: 01/25/2024 INDICATION: Shortness of breath COMPARISON: 01/01/2024 Procedure Note Saturnino Adams MD - 01/26/2024 EXAM: XR CHEST 2 VIEWS LOCATION: [facility] DATE: 01/25/2024 INDICATION: Shortness of breath COMPARISON: 01/01/2024 IMPRESSION: Hyperexpanded lungs, suggesting underlying emphysema. No focalairspace opacity. Bilateral pleural thickening versus trace effusions. Nopneumothorax. Cardiac silhouette and mediastinal contours are normal. Brooks Somers MD IMG DIAGNOSTIC IMAGI NG ORDERABLES * EKG 12 lead (01/25/2024 6:33 PM VENETIAN BLIND TAPE CUTTER) Only the most recent of2 resultswithin the time period is included. Systolic Blood Pressure mmHg RADIOLOGY RESULTS Diastolic Blood Pressure mmHg RADIOLOGY RESULTS Ventricular Rate 70 BPM RAD IOLOGY RESULTS Atrial Rate 70 BPM RADIOLOG Y RESULTS MA Interval 152 ms RADIOLOG Y RESULTS QRS Duration 84 ms RADIOLO GY RESULTS QT 416 ms RADIOLOGY RESULTS QTc 449 ms RADIOLOGY RESULTS P [place] 81 degrees RADIOLOGY RESULTS R AXIS 76 degrees RADIOLOGY RESULTS T [place] 61 degrees RADIOLOGY RESULTS Interpretation ECG Sinus rhythm with sinus arrhythmia Normal ECG When compared with ECG of 25-JAN-2024 18:18, (unconfirmed) No significant change was found RADIOLOGY RESULTS 01/25/2024 6:33 PM VENETIAN BLIND TAPE CUTTER 01/25/2024 7:35 PM VENETIAN BLIND TAPE CUTTER Brooks Somers MD ECG ORDERABLES Performing Organization Address [facility]/ZIP Co de Phone Number RADIOLOGY RESULTS * Extra Heparinized Syringe (01/25/2024 6:29 PM VENETIAN BLIND TAPE CUTTER) Hold Specimen [facility] 01/25/2024 7:47 PM VENETIAN BLIND TAPE CUTTER [facility] Blood, venous BLOOD SPECIMEN / Unknown Venipuncture / Unknown 01/25/2024 6:29 PM VENETIAN BLIND TAPE CUTTER 01/25/2024 6:38 PM VENETIAN BLIND TAPE CUTTER Brooks Somers MD LAB - BLOOD ORDERABL ES Performing Organization Address [facility] Co de Phone Number [facility] Care Lab [address] Lab (1st floor, no room number) [place] [phone], [facility] [phone] * Extra Blood Culture Bottle (01/25/2024 6:29 PM VENETIAN BLIND TAPE CUTTER) Hold Specimen [facility] 01/25/2024 7:47 PM VENETIAN BLIND TAPE CUTTER [facility] Blood STRUCTURE OF RIGHT UPPER LIMB / Unknown Venipuncture / Unknown 01/25/2024 6:29 PM VENETIAN BLIND TAPE CUTTER 01/25/2024 6:39 PM VENETIAN BLIND TAPE CUTTER Brooks Somers MD LAB - BLOOD ORDERABL ES Performing Organization Address City/[facility]/ZIP Co de Phone Number [facility] Care Lab [address] Lab (1st floor, no room number) [place] [address], [facility] [phone] * Extra Green Top ([place] Heparin) Tube (01/25/2024 6:29 PM VENETIAN BLIND TAPE CUTTER) Hold Specimen [facility] 01/25/2024 7:47 PM VENETIAN BLIND TAPE CUTTER [facility] Blood BLOOD SPECIMEN / Unknown Venipuncture / Unknown 01/25/2024 6:29 PM VENETIAN BLIND TAPE CUTTER 01/25/2024 6:38 PM VENETIAN BLIND TAPE CUTTER Brooks Somers MD LAB - BLOOD ORDERABL ES [facility] Lab [address] Lab (1st floor, no room number) [place] [address], [facility] [phone] * Extra Red Top Tube (01/25/2024 6:29 PM VENETIAN BLIND TAPE CUTTER) Hold Specimen [facility] 01/25/2024 7:47 PM VENETIAN BLIND TAPE CUTTER [facility] Blood BLOOD SPECIMEN / Unknown Venipuncture / Unknown 01/25/2024 6:29 PM VENETIAN BLIND TAPE CUTTER 01/25/2024 6:38 PM VENETIAN BLIND TAPE CUTTER Brooks oSmers MD LAB - BLOOD ORDERABL ES Performing Organization Address City/[facility]/ZIP Co de Phone Number [facility] Lab [address] Lab (1st floor, no room number) [place] [address], [place] [phone] * Extra Blue Top Tube (01/25/2024 6:29 PM VENETIAN BLIND TAPE CUTTER) Hold Specimen [facility] 01/25/2024 7:47 PM VENETIAN BLIND TAPE CUTTER [facility] Blood BLOOD SPECIMEN / Unknown Venipuncture / Unknown 01/25/2024 6:29 PM VENETIAN BLIND TAPE CUTTER 01/25/2024 6:38 PM VENETIAN BLIND TAPE CUTTER Brooks Somers MD LAB - BLOOD ORDERABL ES [facility] Lab [address] Lab (1st floor, no room number) [place] [address], [place] [phone] * (ABNORMAL) CBC with platelets and differential (01/25/2024 6:29 PM VENETIAN BLIND TAPE CUTTER) [facility] WBC Count 10.8 4.0 - 11.0 10e3/uL 01/25/2024 6:43 PM [facility]ENETIAN BLIND TAPE CUTTER [facility] RBC Count 4.92 3.80 - 5.20 10e6/uL 01/25/2024 6:43 PM [facility] BLIND TAPE C[facility] Hemoglobin 14.8 11.7 - 15.7 g/dL 01/25/2024 6:43 PM [facility] BLIND TAPE CUT[facility] Hematocrit 45.5 35.0 - 47.0 % 01/25/2024 6:43 PM [facility] BLIND TAPE CUT[facility] MCV 93 78 - 100 fL 01/25/2024 6:43 PM [facility] BLIND TAPE CUT[facility] MCH 30.1 26.5 - 33.0 pg 01/25/2024 6:43 PM [facility] BLIND TAPE CUT[facility] MCHC 32.5 31.5 - 36.5 g/dL 01/25/2024 6:43 PM [facility]IND TAPE C[facility] RDW 13.2 10.0 - 15.0 % 01/25/2024 6:43 PM [facility]IND TAPE C[facility] Platelet Count 342 150 - 450 10e3/uL 01/25/2024 6:43 PM [facility] BLIND TAPE C[facility] % Neutrophils 61 % 01/25/2024 6:43 PM [facility] BLIND TAPE CUT[facility] % Lymphocytes 22 % 01/25/2024 6:43 PM [facility] BLIND TAPE C[facility] % Monocytes 5 % 01/25/2024 6:43 PM [facility] BLIND TAPE C[facility] % Eosinophils 11 % 01/25/2024 6:43 PM [facility] BLIND TAPE CUT[facility] % Basophils 1 % 01/25/2024 6:43 PM [facility] BLIND TAPE C[facility] % Immature Granulocytes 0 % 01/25/2024 6:43 PM [facility] BLIND TAPE CUT[facility] NRBCs per 100 WBC 0 <1 /100 024 6:43 PM VENETIAN BLIND TAPE CUTTER [facility] Absolute Neutrophils 6.5 1.6 - 8.3 10e3/uL 01/25/2024 6:43 PM [facility] BLIND TAPE CUT[facility] Absolute Lymphocytes 2.4 0.8 - 5.3 10e3/uL 01/25/2024 6:43 PM [facility]EN[facility]IAN BLIND TAPE CUTTER [facility] Absolute Monocytes 0.6 0.0 - 1.3 10e3/uL 01/25/2024 6:43 PM VENETIAN BLIND TAPE CUTTER [facility] Absolute Eosinophils 1.2(H) 0.0 - 0.7 10e3/uL 01/25/2024 6:43 PM [facility]EN[facility] BLIND TAPE CUTTER LABORATORY Absolute Basophils 0.1 0.0 - 0.2 10e3/uL 01/25/2024 6:43 PM [facility] BLIND TAPE CUTTER LABORATORY Absolute Immature Granulocytes 0.0 <=0.4 10e3/uL 01/25/2024 6:43 PM VENETIAN BLIND TAPE CUTTER [facility] Absolute NRBCs 0.0 10e3/uL 01/25/2024 6:43 PM [facility] BLIND TAPE CUTTER LABORATORY Blood BLOOD SPECIMEN / Unknown Venipuncture / Unknown 01/25/2024 6:29 PM VENETIAN BLIND TAPE CUTTER 01/25/2024 6:38 PM VENETIAN BLIND TAPE CUTTER Brooks Somers MD LAB - BLOOD ORDERABL ES LABORATORY [facility] Acute Care Lab [address] [facility] Lab (1st floor, no room number) [place] [address], [facility] [phone] * Basic metabolic panel (01/25/2024 6:29 PM VENETIAN BLIND TAPE CUTTER) Pathologist [facility] Sodium 139 135 - 145 mmol/L 01/25/2024 7:01 PM [facility] Comment:Reference intervals for this test were updated on 08/15/2023 to more accurately reflect our healthy population. There may be differences in the flagging of prior results with similar values performed with this method. Interpretation of those prior results can be made in the context of the updated reference intervals. Potassium 4.4 3.4 - 5.3 mmol/L 01/25/2024 7:01 PM [facility] Chloride 103 98 - 107 mmol/L 01/25/2024 7:01 PM [facility] Carbon Dioxide (CO2) 23 22 - 29 mmol/L 01/25/2024 7:01 PM [facility] Anion Gap 13 7 - 15 mmol/L 01/25/2024 7:01 PM [facility] Urea Nitrogen 15.8 6.0 - 20.0 mg/dL 01/25/2024 7:01 PM [facility] Creatinine 0.82 0.51 - 0.95 mg/dL 01/25/2024 7:01 PM [facility] GFR Estimate 89 >60 mL/min/1. 73m2 01/25/2024 7:01 PM [facility] BLIND TAPE C[facility] Calcium 9.2 8.6 - 10.0 mg/dL 01/25/2024 7:01 PM [facility] BLIND TAPE C[facility] Glucose 94 70 - 99 mg/dL 01/25/2024 7:01 PM [facility]EN[facility] BLIND TAPE CUT[facility] Blood BLOOD SPECIMEN / Unknown Venipuncture / Unknown 01/25/2024 6:29 PM VEN[facility]IAN BLIND TAPE CUTTER 01/25/2024 6:38 PM VENETIAN BLIND TAPE CUTTER Brooks Somers MD LAB - BLOOD ORDERABL ES [facility] LAB[facility]ATORY [facility] Acute Care Lab [address] Lab (1st floor, no room number) [place] [address], [facility] [phone] from Last 3 Months Care Teams Landscape Manager Relationship Specialty Start Date End Date [facility], [address] [address] PCP - General 01/25/24
--- NOTE | 2024-04-09 23:45 | ED_ITS ---
HPI - General Adult General Chief complaint: Epistaxis/Nosebleed Stated complaint: nosebleed/post op History of Present Illness HPI narrative: Pt reports she had sinus surgery on Monday, packing was removed today, nose has been bleeding since from both nostrils. Surgery was done by Luc Carrillo. Saw Raiza Slaughter this AM, packing was removed and then put back in on L side nostril due to continued bleeding. Has been bleeding through the packing on her L side and from also from her unpacked R side nostril. 48-year-old woman presenting to the emergency department with concern of nose bleed. Had nasal surgery for chronic sinusitis 5 days ago. Seen earlier today in clinic with packing removed. Review of record shows that Gel-Foam was placed at the left nares for some light bleeding. Apparently has now continued bleeding from both sides. She has rolled up gauze and stuff them in her nose. Is not feeling lightheaded. Is having pain but is not complaining of pain. No fever. No purulent drainage. She is worried as her prior surgery years ago did not have this problematic bleeding. Related Data Home Medications ?Medication ?Instructions ?Recorded ?Confirmed prednisone 20 mg tablet 20 mg PO .QD 03/25/24 04/10/24 Previous Rx's ?Medication ?Instructions ?Recorded albuterol sulfate 2.5 mg/3 mL 2.5 mg (3 mL) inhalation .prn PRN 10/24/22 (0.083 %) solution for nebulization bronchospasm #75 mL ipratropium 0.5 mg-albuterol 3 mg 3 ml inhalation Q4H PRN wheezing 04/23/23 (2.5 mg base)/3 mL nebulization #90 mL soln sumatriptan succinate 50 mg tablet 50 mg PO .As Needed PRN migraine 10/13/23 headache #14 tabs benzonatate 100 mg capsule 100 mg PO BID-TID PRN cough #30 11/27/23 caps albuterol sulfate 90 mcg/actuation 2 puff inhalation Q4-6H PRN 01/25/24 aerosol inhaler bronchospasm #8.5 grams fluticasone furoate 200 1 inh inhalation Q24H #30 ea 01/25/24 mcg/actuation blister powder for inhalation doxycycline hyclate 100 mg capsule 100 mg PO BID #10 caps 04/05/24 ondansetron 4 mg disintegrating 4 mg PO Q8H #10 tabs 04/05/24 tablet oxycodone 5 mg capsule 5 mg PO Q4-6H PRN pain #30 caps 04/05/24 Allergies Allergy/AdvReac Type Severity Reaction Status Date / Time penicillin V Allergy Intermediate Hives Verified 04/10/24 09:04 amoxicillin Allergy Unknown Hives/angeo Verified 04/10/24 09:04 adema doxycycline AdvReac Intermediate Vomiting Verified 04/10/24 09:04 Review of Systems Status of ROS: Reports: 6 or more systems reviewed and unremarkable except as noted in History and below [facility] Medical History Asthma exacerbation ?J45.901 - Unspecified asthma with (acute) exacerbation (ICD-10) SAMIA III (cervical intraepithelial neoplasia III) (2016) ?D06.9 - Carcinoma in situ of cervix, unspecified (ICD-10) Endometriosis ?N80.9 - Endometriosis, unspecified (ICD-10) Migraine with aura ?G43.109 - Migraine with aura, not intractable, without status migrainosus (ICD-10) History of abnormal cervical Papanicolaou smear (2010) ?Z87.42 - Personal history of other diseases of the female genital tract (ICD-10) Hemangioma of liver (2013) ?D18.03 - Hemangioma of intra-abdominal structures (ICD-10) Crampy pain associated with menses ?N94.6 - Dysmenorrhea, unspecified (ICD-10) Surgical History Status post laparoscopic hysterectomy (2020) ?Z90.710 - Acquired absence of both cervix and uterus (ICD-10) History of repair of anterior cruciate ligament of left knee (1989) ?Z98.890 - Other specified postprocedural states (ICD-10) History of nasal septoplasty (09/01/17) ?Z98.890 - Other specified postprocedural states (ICD-10) Family History Paternal Grandmother Breast cancer, Onset Age: 92 Father Suicide Social History Narrative: , 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, 2 kids, 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 Non-smoker Rarely consumes alcohol Exercise 5 to 6 times a week by walking on treadmill 90 minute What is your current living situation?: I presently have a place to live Problems where you live: no known problems In the past 12 months, utilities in danger of being shut off: no In past 12 months, lack of transportation kept you from medical appts, meetings, work, or getting things needed for daily living: no In the past 12 mos, have been you worried that your food would run out before you had money to buy more?: never true In the past 12 mos, the food you bought just didn't last and you didn't have money to buy more?: never true Smoking Status: Never smoker How often do you have a drink containing alcohol: monthly or less AUDIT-C Alcohol total score: 1 Non-prescribed substance use: denies use How often does anyone, including family, friends and others, physically hurt you : never How often does anyone, including family, friends and others, insult or talk down to you: never How often does anyone, including family, friends and others, threaten you with harm: never How often does anyone, including family, friends and others, scream or curse at you: never Little interest or pleasure in doing things: not at all Feeling down, depressed, or hopeless: not at all Exam Narrative: Exam Narrative: Very pleasant. Here with significant other I believe. Laughs easily. Has 2 rolled gauze sticking out of her nose that are slightly blood-stained. Breathing easily. Oropharynx without active bleeding. Some small old clot bilaterally I think. I returned some time later to remove the rolled gauze which is only placed very distally in the bilateral nares, I do not see active bleeding actually in either side. The right does not have notable inflammatory changes the left however shows swollen and boggy and erythematous/beefy mucosa. Not clearly with active bleeding either. Const: Vital Signs, click to edit/add: Vital Signs - 24 hr 04/09/24 22:25 Temperature 97.0 F L Pulse Rate [Pulse Oximeter] 66 Respiratory Rate 16 Blood Pressure [Ri ght Upper Arm] 161/85 H Pulse Oximetry 98 Oxygen Delivery Me thod Room Air Documenting provider has reviewed patient's vital signs: yes Course Vital Signs Vital signs: Initial Vital Signs Temperature 97.0 F L 04/09/24 22:25 Temperature Source Temporal Artery Scan 04/09/24 22:25 Pulse Rate 66 04/09/24 22:25 Respiratory Rate 16 04/09/24 22:25 Blood Pressure 161/85 H 04/09/24 22:25 Blood Pressure Mean 110 H 04/09/24 22:25 Blood Pressure Position Sitting 04/09/24 22:25 Pulse Oximetry 98 04/09/24 22:25 Oxygen Delivery Method Room Air 04/09/24 22:25 Vital Signs Temperature 97.0 F L 04/09/24 22:25 Pulse Rate 66 04/09/24 22:25 Respiratory Rate 16 04/09/24 22:25 Blood Pressure 161/85 H 04/09/24 22:25 Pulse Oximetry 98 04/09/24 22:25 Oxygen Delivery Method Room Air 04/09/24 22:25 Temperature 97.0 F L 04/09/24 22:25 Pulse Rate 66 04/09/24 22:25 Respiratory Rate 16 04/09/24 22:25 Blood Pressure 161/85 H 04/09/24 22:25 Pulse Oximetry 98 04/09/24 22:25 Oxygen Delivery Method Room Air 04/09/24 22:25 Medical Decision Making MDM Narrative Medical decision making narrative: Arriving clearly with postoperative bleeding. This seems to have spontaneously resolved. She has been having too much discomfort really to apply pressure. Did not need to intervene other than time here in the emergency department. Does have an appointment tomorrow morning with ENT for recheck. See patient discharge plan further discussion/plan. Medical Records Medical records reviewed: Yes I reviewed the patient's medical records Discharge Plan Discharge Clinical Impression: Epistaxis, Post-op bleeding Patient Disposition: Home w/ Parent or Adult Condition: Improved Additional Instructions: Keep using your saline nasal drops. Consider also sleeping under the mist of a cool mist humidifier. If bleeding recurs, moisten 1 or 2 cotton balls placing into each nostril and apply nose clamp. If bleeding is really out of control, copious, return to the emergency department, otherwise might wait an hour to see if you can get control. Sounds like you might want to take your oxycodone yet tonight I think it is a good idea to keep your appointment with Dr. Khan tomorrow morning. Prescriptions: No Action albuterol sulfate 2.5 mg /3 mL (0.083 %) solution for nebulization 2.5 mg inhalation .prn PRN (Reason: bronchospasm) Qty: 75 3RF ipratropium-albuterol 0.5 mg-3 mg(2.5 mg base)/3 mL solution for nebulization 3 ml inhalation Q4H PRN (Reason: wheezing) Qty: 90 0RF sumatriptan succinate 50 mg tablet 50 mg PO .As Needed PRN (Reason: migraine headache) Qty: 14 1RF prednisone 20 mg tablet 20 mg PO .QD benzonatate 100 mg capsule 100 mg PO BID-TID PRN (Reason: cough) Qty: 30 1RF fluticasone furoate 200 mcg/actuation blister with device 1 inh inhalation Q24H Qty: 30 2RF albuterol sulfate 90 mcg/actuation HFA aerosol inhaler 2 puff inhalation Q4-6H PRN (Reason: bronchospasm) Qty: 8.5 3RF Rx Instructions: Use as needed for wheezing shortness of breath and coughing doxycycline hyclate 100 mg capsule 100 mg PO BID Qty: 10 0RF oxycodone 5 mg capsule 5 mg PO Q4-6H PRN (Reason: pain) Qty: 30 0RF ondansetron 4 mg tablet,disintegrating 4 mg PO Q8H Qty: 10 0RF Follow Up/Referrals: Prerna Barnett MD [Primary Care Provider] - Stand Alone Forms: [employer] Info Instructions
--- NOTE | 2024-04-10 00:26 | PC.NURSE ---
patient provided with extra nasal clamp and instructions on use, DC instructions reviewed with patient and , no further questions. patient bleeding has stopped. all belongings sent home with patient and .
== END 2024-04-10 00:27 | disposition home or self-care (01) ==
PROVIDERS: Emergency Provider Family Medicine; PCP Family Medicine
DX: J95.831 Postprocedural hemorrhage of a respiratory system organ or structure following other procedure (principal); R04.0 Epistaxis
CPT/HCPCS: 99282; 99283; 99284

== ENCOUNTER 2025-03-06 07:30 | Outpatient (CLI) | payer OTHER, SELFPAY | END 2025-03-06 07:31 | disposition home or self-care (01) | LOC: NFLDREF 03-09 18:18 | PROVIDERS: PCP Family Medicine; Referring Provider Family Medicine; Visit Provider Family Medicine | DX: E78.5 Hyperlipidemia, unspecified (principal) | CPT/HCPCS: 80053; 80061 ==

== ENCOUNTER 2025-03-12 13:20 | Outpatient (CLI) | payer OTHER, SELFPAY ==
[2025-03-14 10:37] LABS: HPV Source Vaginal; HPV, High Risk by TMA Not Detected
== END 2025-03-12 13:21 | disposition home or self-care (01) ==
PROVIDERS: PCP Family Medicine; Visit Provider Family Medicine
DX: Z12.4 Encounter for screening for malignant neoplasm of cervix (principal); Z11.51 Encounter for screening for human papillomavirus (HPV)
CPT/HCPCS: 87624; 87625; 88141; 88142

== ENCOUNTER 2025-04-28 06:28 | Outpatient (CLI) | payer OTHER, SELFPAY ==
--- NOTE | 2025-04-28 08:05 | P.ANES_ITS ---
Anesthesia Charges Start Date/Time Anesthesia Start Date: 04/28/25 Anesthesia Start Time: 07:30 Stop Date/Time Anesthesia Stop Date: 04/28/25 Anesthesia Stop Time: 08:01 Coding CPT Codes CPT Codes: ANES LWR INTST SCR COLSC - 90917 ([id number]) P2 - PATIENT W/MILD SYST DISEASE, QK - BUTTON AND BUCKLE MAKER 2-4 CNCRNT ANES PROC, QX - FIBRE CEMENT MOULDER SVC W/ MD MED DIRECTION
--- NOTE | 2025-04-28 08:05 | W.ANESCHARGE ---
Anesthesia Charges Start Date/Time Anesthesia Start Date: 04/28/25 Anesthesia Start Time: 07:30 Stop Date/Time Anesthesia Stop Date: 04/28/25 Anesthesia Stop Time: 08:01 Coding CPT Codes CPT Codes: ANES LWR INTST SCR COLSC - 75825 ([id number]) P2 - PATIENT W/MILD SYST DISEASE, QK - WELD FITTER 2-4 CNCRNT ANES PROC, QX - REGISTER IN CHANCERY SVC W/ MD MED DIRECTION
--- NOTE | 2025-04-28 09:09 | P.ANES_ITS ---
Anesthesia Charges Start Date/Time Anesthesia Start Date: 04/28/25 Anesthesia Start Time: 07:30 Stop Date/Time Anesthesia Stop Date: 04/28/25 Anesthesia Stop Time: 08:01 Coding CPT Codes CPT Codes: ANES LWR INTST SCR COLSC - 15473 ([id number]) P2 - PATIENT W/MILD SYST DISEASE, QK - CANDY ROLLER 2-4 CNCRNT ANES PROC, QX - INTENSIVE CARE ANAESTHETIST SVC W/ MD MED DIRECTION
--- NOTE | 2025-04-28 09:09 | W.ANESCHARGE ---
Anesthesia Charges Start Date/Time Anesthesia Start Date: 04/28/25 Anesthesia Start Time: 07:30 Stop Date/Time Anesthesia Stop Date: 04/28/25 Anesthesia Stop Time: 08:01 Coding CPT Codes CPT Codes: ANES LWR INTST SCR COLSC - 05693 ([id number]) P2 - PATIENT W/MILD SYST DISEASE, QK - WEIGHER PRODUCTION 2-4 CNCRNT ANES PROC, QX - CHIP WASHER SVC W/ MD MED DIRECTION
== END 2025-04-28 06:29 | disposition home or self-care (01) ==
PROVIDERS: PCP Family Medicine; Visit Provider Surgery
DX: Z12.11 Encounter for screening for malignant neoplasm of colon (principal)
CPT/HCPCS: 00812; 45378; J2704

== ENCOUNTER 2025-05-27 13:43 | Outpatient (CLI) | payer OTHER, SELFPAY | END 2025-05-27 13:44 | disposition home or self-care (01) | PROVIDERS: PCP Family Medicine; Visit Provider Otolaryngology | DX: J32.9 Chronic sinusitis, unspecified (principal) | CPT/HCPCS: 82784; 82785; 82787 ==

== ENCOUNTER 2025-06-20 11:18 | Outpatient (CLI) | payer OTHER, SELFPAY ==
--- NOTE | 2025-06-20 11:30 | CRLHL7_ITS ---
For Patients: As a result of the Century Cures Act, medical imaging exams and procedure reports are released immediately into your electronic medical record. You may view this report before your referring provider. If you have questions, please contact your health care provider. INDICATION: BILATERAL SCREENING MAMMOGRAM, ASYMPTOMATIC 49 Y/O FEMALE COMPARISON: 02/26/2021 TECHNIQUE: Digital mammogram in CC and MLO projections including computer-aided detection (CAD) and tomosynthesis. BREAST COMPOSITION: The breasts are heterogeneously dense, which may obscure small masses. FINDINGS: No suspicious findings. ASSESSMENT: BI-RADS 1 Negative RECOMMENDATION: Annual screening mammogram. A lay language report of this examination will be provided to the patient. Dictated by: Parveen Gomez MD @ 06/23/2025 09:45:25 (Electronically Signed)
== END 2025-06-20 11:19 | disposition home or self-care (01) ==
LOC: MAMMO 11:18
PROVIDERS: PCP Family Medicine; Visit Provider Family Medicine
DX: Z12.31 Encounter for screening mammogram for malignant neoplasm of breast (principal); R92.333 Mammographic heterogeneous density, bilateral breasts
CPT/HCPCS: 77063; 77067

== ENCOUNTER 2025-08-12 11:24 | Outpatient (CLI) | payer OTHER, SELFPAY | END 2025-08-12 11:25 | disposition home or self-care (01) | LOC: LKVREF 11:26 | PROVIDERS: PCP Family Medicine; Visit Provider Family Medicine | DX: R30.0 Dysuria (principal) | CPT/HCPCS: 87086 ==